=== PATIENT | male | born 1950 | race Caucasian/White ===

== ENCOUNTER → 2017-11-18 08:11 | Outpatient (CLI) | payer MEDICARE, OTHER, SELFPAY ==
[2017-11-18 09:55] LABS: Absolute Lymphocyte Count 1.62 X10^3/ul (0.83-4.51); Absolute Neutrophil Count 4.3 X10^3/uL (2.0-7.7); Basophil# 0.03 X10^3/uL; Basophil% 0.4 % (0-1); Eosinophil# 0.22 X10^3/uL; Eosinophils% 3.2 % (0-5); Hematocrit 48.2 % (40-54); Hemoglobin 16.1 g/dl (13.0-16.5); Lymphocyte # 1.62 X10^3/ul (4.0); Lymphocyte % 23.8 % (19-41); Mean Corp Hgb Conc 33.4 g/gl (32-36); Mean Corpuscular Volume 92.9 fL (80-94); Mean Platelet Vol. 9.9 fl (6.2-12.0); Monocyte# 0.61 X10^3/uL; Neutrophil # 4.31 X10^3/uL (2.7-7.7); Neutrophil % 63.3 % (47-70); POSITIVE COUNT NO; POSITIVE DIFFERENTIAL NO; POSITIVE MORPHOLOGY NO; Platelet Count 185 K/mm3 (150-450); RBC Distribution Width CV 14.1 % (11.6-14.6); RBC Distribution Width SD 47.6 fl (35.1-43.9); Red Blood Count 5.19 M/mm3 (4.6-6.2); White Blood Count 6.8 K/mm3 (4.4-11.0)
[2017-11-18 10:29] LABS: ALB/GLOB Ratio 0.9 RATIO (0.9-2.4); AST(SGOT) 24 U/L (15-37); Alanine Aminotransfer ALT/SGPT 45 U/L (16-61); Albumin, Serum 3.7 g/dL (3.2-5.0); Alkaline Phosphatase 81 U/L (45-117); Anion Gap 7 (5-15); BUN 17 mg/dL (7-18); BUN/Creat Ratio 14.4 RATIO (10-20); Calcium,Total 8.6 mg/dL (8.5-10.1); Chloride 107 mmol/L (98-107); Cholesterol 154 mg/dL (200); Creatinine, Serum 1.18 mg/dL (0.70-1.30); EST Glomerular Filtration Rate 65 mL/min (>60); Est Glom Filt Rate - Afr Amer 79 mL/min (>60); Globulin 3.9 g/dL (2.2-4.2); Glucose 109 mg/dL (74-106); High Density Lipoprotein 38 mg/dL; PSA,Total - Annual Screen < 0.01 ng/mL (0.00-4.00); Potassium 4.1 mmol/L (3.5-5.1); Protein, Total 7.6 g/dL (6.4-8.2); Sodium Level 140 mmol/L (136-145); Triglycerides 163 mg/dL; Very Low Density Lipoprotein 33 mg/dL (5-40)
== END ==
PROVIDERS: Family Provider Family Medicine; PCP Family Medicine; Visit Provider Family Medicine
DX: R73.01 Impaired fasting glucose (principal); E78.5 Hyperlipidemia, unspecified; Z85.46 Personal history of malignant neoplasm of prostate
CPT/HCPCS: 36415; 80053; 80061; 84153; 85025; G0103

== ENCOUNTER → 2018-03-03 12:15 | Outpatient (CLI) | payer MEDICARE, OTHER, SELFPAY ==
--- NOTE | 2018-03-03 12:34 | RAD_ITS ---
STUDY: X-RAY - RIGHT KNEE REASON FOR EXAM: Male, 67 years old. Pain. TECHNIQUE: 4 view(s) of the knee. COMPARISON: None. FINDINGS: Normal visualized distal femur. Normal visualized proximal tibia and fibula. Normal proximal tibiofibular articulation. There is no demonstrated fracture. Normal medial femorotibial compartment. Normal lateral femorotibial compartment. Normal patellofemoral articulation. There is no demonstrated joint effusion. The soft tissue structures are unremarkable. RAD/Knee 4 or More Views IMPRESSION: Normal x-ray examination of the knee. Electronically Signed: Lemuel Douglas MD at 21:25 EST , Service support ,
== END ==
PROVIDERS: Family Provider Family Medicine; PCP Family Medicine; Referring Provider Family Medicine; Visit Provider Family Medicine
DX: M19.90 Unspecified osteoarthritis, unspecified site (principal)
CPT/HCPCS: 73564

== ENCOUNTER → 2018-07-22 | Outpatient (CLI) | payer MEDICARE, OTHER, SELFPAY ==
[2018-07-21 08:56] VITALS: BMI 30.4
[2018-07-22 15:44] LABS: Pathologist Comment May follow
[2018-07-22 17:09] LABS: Synovial Fld Mononuclear WBC % 87.4 %; Synovial Fld Polynuclear WBC # 0.035 10^3/ul; Synovial Fld Polynuclear WBC % 12.6 %
[2018-07-22 19:13] LABS: RBC /Synovial Fluid 30 /mm3 (0)
[2018-07-22 19:14] LABS: AUTO B FLUID DILUENT BKGD CT WBC <0.1 RBC <0.01 (W<.1,R<.01); CRYSTALS, BODY FLUID See PATH REV; Color / Synovial Fluid Yellow (Pale Yellow); Source / Synovial Fluid RT.KNEE; Source- Body Fluid SYNOVIAL
[2018-07-22 19:15] LABS: Appearance /Synovial Fluid Clear (CLEAR)
[2018-07-22 19:27] LABS: Body Fluid QC Type(s) BF2Q,BF3Q; Lymph 16 %; Monocyte /Synovial Fluid 78 %; Neutrophil 6 % (0-25)
[2018-07-25 14:37] LABS: Pathologist Review Reviewed
[2018-07-26 17:39] LABS: GLUCOSE, SYNOVIAL FLUID 138 mg/dL (.); PROTEIN, SYNOVIAL FLUID 3.8 g/dL (.)
== END | disposition home or self-care (01) ==
LOC: LABSPEC 14:52
PROVIDERS: Family Provider Family Medicine; PCP Family Medicine; Referring Provider Orthopaedic Surgery; Visit Provider Orthopaedic Surgery
DX: M23.306 Other meniscus derangements, unspecified meniscus, right knee (principal); M17.11 Unilateral primary osteoarthritis, right knee
CPT/HCPCS: 82945; 84157; 87070; 87075; 87205; 89050; 89051; 89060

== ENCOUNTER → 2018-09-01 | Outpatient (CLI) | payer MEDICARE, OTHER, SELFPAY ==
[2018-09-01 12:25] VITALS: BMI 30.4
--- NOTE | 2018-09-01 12:47 | RAD_ITS ---
STUDY: X-RAY - RIGHT TIBIA AND FIBULA REASON FOR EXAM: Leg pain, no specific injury. TECHNIQUE: 2 view(s) of the tibia and fibula were obtained. COMPARISON: Radiographs of the right knee 03/03/2018. FINDINGS: There is a very small focus of nonaggressive periosteal reaction of the medial aspect of the proximal tibial diaphysis. Normal visualized fibula. The soft tissue structures are unremarkable. RAD/Tibia & Fibula 2 Views IMPRESSION: Very small focus of nonaggressive periosteal reaction of the proximal tibial diaphysis. Otherwise, unremarkable x-ray examination of the right tibia and fibula. Electronically Signed: Ever Jones MD at 15:24 EDT Tel , Service support ,
== END | disposition home or self-care (01) ==
LOC: HPRAD 12:46
PROVIDERS: Family Provider Family Medicine; PCP Family Medicine; Referring Provider Orthopaedic Surgery; Visit Provider Orthopaedic Surgery
DX: M25.561 Pain in right knee (principal)
CPT/HCPCS: 73590

== ENCOUNTER → 2018-09-09 | Outpatient (CLI) | payer MEDICARE, OTHER, SELFPAY ==
[2018-09-01 12:25] VITALS: BMI 30.4
--- NOTE | 2018-09-09 07:14 | MRI_ITS ---
STUDY: MRI RIGHT KNEE REASON FOR EXAM: Medial right knee pain for 8 months, no specific injury. TECHNIQUE: Standardized fat and water weighted pulse sequences were obtained in all 3 orthogonal planes. COMPARISON: Radiographs 03/03/2018. FINDINGS: There is a complex tear of the posterior horn and body of the medial meniscus (proton-density sagittal images 9-16; proton density coronal images 13-16) including a radial component (T2 coronal images 11, 12). There is peripheral subluxation of the medial meniscus. There is arthrosis of the medial femorotibial compartment with chondral thinning (T2 sagittal image 7). There is subchondral bone edema of the medial femoral condyle and tibial plateau (T2 coronal images 13-18), a stress phenomenon. Normal medial collateral ligamentous complex (MCL). Normal distal semimembranosus, gracilis and semitendinosus tendons. Normal lateral meniscus. There is mild arthrosis of the lateral femorotibial compartment with mild irregularity of the articular cartilage at the posterior aspect of the compartment (T2 sagittal image 19). Normal lateral femoral condyle and tibial plateau. Normal proximal tibiofibular articulation. Normal lateral collateral (fibular) ligament. Normal popliteus tendon. Normal biceps femoris tendon. Normal anterior cruciate ligament (ACL). Normal posterior cruciate ligament (PCL). Normal congruent patellofemoral articulation. There is mild arthrosis of the patellofemoral compartment with mild irregularity of the articular cartilage (T2 sagittal image 13). Normal medial and lateral patellar retinaculum. Normal visualized quadriceps tendon. Normal patellar tendon. Normal Hoffa's fat pad. There is a small joint effusion. There is a very small popliteal cyst (T2 sagittal images 6, 7). There is a ganglion cyst adjacent to the origin of the lateral gastrocnemius (T2 sagittal images 16-18) measuring 1.5 cm in length. There is mild edema in the anterior and medial subcutis adipose space. There is mild bone edema in the proximal tibia near the insertion site of the posterior cruciate ligament. MRI/Lower Ext Joint Only (Routine) IMPRESSION: Medial meniscal tear. Tricompartmental arthrosis. Subchondral bone edema of the medial femoral condyle and medial tibial plateau, a stress phenomenon. Small joint effusion. Very small popliteal cyst. Ganglion cyst adjacent to the origin of the lateral gastrocnemius. Electronically Signed: Ever Jones MD at 8:59 EDT Tel , Service support ,
== END | disposition home or self-care (01) ==
LOC: MRI 07:13
PROVIDERS: Family Provider Family Medicine; PCP Family Medicine; Referring Provider Orthopaedic Surgery; Visit Provider Orthopaedic Surgery
DX: S83.241A Other tear of medial meniscus, current injury, right knee, initial encounter (principal)
CPT/HCPCS: 73721

== ENCOUNTER 2018-10-17 09:00 | Outpatient (RCR) | payer MEDICARE, OTHER, SELFPAY ==
[2018-10-14 09:03] VITALS: BMI 30.4
--- NOTE | 2018-10-17 09:43 | HP.PTEVAL ---
Patient's Visit Information FARRUKH GORDON is a 68 year old M referred to Physical Therapy by Deb Becerra DO with a diagnosis of OA in the right knee. Date of Evaluation: 10/17/18 Physical Therapist: Amira Michelle DPT - Visit Plan Frequency: 1x/Week Duration: 1 Week Plan: Patient was evaluation and given HEP including SLS, standing HR/TR, gastroc stretching, hamstring stretching and quad stretching. Patient was educated on importance of strength for support of musculature surrounding OA. Encouraged complaince with HEP and he will call with questions or concerns. Appropriate to continue HEP and be d/c from PT at this time. - Subjective Findings: Patient reports that he has medial knee pain on the right knee. 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 And is on uneven surfaces a lot- but no specific injury- no falls. He knows he has severe OA in the knee but he has pain all the time. Sometimes its worse than others. Worst: [address]: being on his feet, uneven surfaces. Can tolerate it all day long- but when he gets up in the AM from walking to bed to bathroom- the weight on it makes it really painful- feels like the knee donovan on him but he has not fallen. Eases: cool wash rag helps in the AM. Best: 4/10. Does radiate to the ankle. Describes the pain as sharp/shooting down the leg and achy pains at the base of the patella but that is not very often. Dr. James thinks that its his back that is more the pain coming down his leg. Does not report back problems. Does not have N/T in the LE. Sleep: not disturbed- side sleeper with a pillow between his knes. Did have an X-ray and MRI- showed tricompartmental OA and medial meniscal tear. ABout 3 months ago had fluid drained and a cortisone injection- only lasted about to his car. Goes back to [facility] in 3 weeks for another injection. Dr. James may have to go in and clean it out and add cement to the bone- she is afraid to go in due to OA and flare it up. PMHx: prostate cancer 2011, DM Meds: aspirin, atorvastatin,diclofenac sodium, metformin, omega-3 fatty acids - Objective Posture: FH, RS- does correct with verbal cues and maintains in hard back chair. Stairs:asc/desc 8 recip with no HR. HR/TR: able with UE A for balance. SLS: 3 sec then LOB- requires UE A for righting. ROM: 0-125 degrees with pain at end range flexion. Palpation: tender along medial joint line. Strength: Ankle: 5/5, Knee: 5/5, Hip: 4+/5, Core: fair plus. Flex: HS: severe, Gastroc: moderate, Quad: mild - Goals Goal 1:: Patient will be I with HEP and progression Goal Time Frame: 4-6 Weeks - Rehabilitation Potential Physical Therapy Diagnosis: Patient presents with hypomobility- patient has good strength and ROM but does demonstrate poor proprioception and reports pain with activity. Rehabilitation Potential: Fair - Anticipated Interventions Thank you for the opportunity to evaluate your patient. For Medicare and Medicare HMO plans, please review the plan of care and approve it. It will need to be FAXED BACK to us at [phone] for Medicare purposes. For Medicare only, by signing this I certify the plan of care. Please let me know if there are questions or concerns regarding this plan of care. Physician Signature: Date:
== END 2018-10-17 19:00 | disposition home or self-care (01) ==
LOC: PT 09:00
PROVIDERS: Family Provider Family Medicine; PCP Family Medicine; Referring Provider Orthopaedic Surgery; Visit Provider Orthopaedic Surgery
DX: M17.11 Unilateral primary osteoarthritis, right knee (principal)
CPT/HCPCS: 97110; 97161

== ENCOUNTER → 2019-01-03 08:28 | Outpatient (CLI) | payer MEDICARE, OTHER, SELFPAY ==
[2018-12-08 08:13] VITALS: BMI 30.4
[2019-01-03 09:55] LABS: Absolute Lymphocyte Count 1.94 X10^3/uL (0.83-4.51); Absolute Neutrophil Count 5.5 X10^3/uL (2.0-7.7); Basophil# 0.06 X10^3/uL; Basophil% 0.7 % (0-1); Eosinophil# 0.23 X10^3/uL; Eosinophils% 2.7 % (0-5); Hematocrit 47.4 % (40-54); Hemoglobin 15.8 g/dL (13.0-16.5); Lymphocyte # 1.94 X10^3/ul (4.0); Lymphocyte % 22.7 % (19-41); Mean Corp Hgb Conc 33.3 g/dL (32-36); Mean Corpuscular Hgb 30.4 pg (27.0-32.0); Mean Corpuscular Volume 91.3 fL (80-94); Mean Platelet Vol. 9.6 fl (6.2-12.0); Monocyte# 0.79 X10^3/uL; Monocyte% 9.2 % (0-10); NRBC Flagged by Analyzer 0 % (0-5); Neutrophil # 5.49 X10^3/uL (2.7-7.7); Neutrophil % 64.1 % (47-70); Platelet Count 209 K/mm3 (150-450); RBC Distribution Width CV 13.7 % (11.6-14.6); RBC Distribution Width SD 46.4 fl (35.1-43.9); Red Blood Count 5.19 M/mm3 (4.6-6.2); White Blood Count 8.6 K/mm3 (4.4-11.0)
[2019-01-03 10:15] LABS: Hemoglobin A1c 6.8 % (4.2-6.3)
[2019-01-03 10:40] LABS: ALB/GLOB Ratio 1.1 RATIO (0.9-2.4); AST(SGOT) 26 U/L (15-37); Alanine Aminotransfer ALT/SGPT 39 U/L (16-61); Albumin, Serum 3.8 g/dL (3.2-5.0); Alkaline Phosphatase 104 U/L (45-117); Anion Gap 6 (5-15); BUN 19 mg/dL (7-18); BUN/Creat Ratio 15.8 RATIO (10-20); Calcium,Total 8.9 mg/dL (8.5-10.1); Chloride 106 mmol/L (98-107); Cholesterol 175 mg/dL (200); EST Glomerular Filtration Rate 64 mL/min (>60); Est Glom Filt Rate - Afr Amer 77 mL/min (>60); Globulin 3.6 g/dL (2.2-4.2); Glucose 145 mg/dL (74-106); High Density Lipoprotein 41 mg/dL; PSA,Total - Annual Screen < 0.01 ng/mL (0.00-4.00); Potassium 4.2 mmol/L (3.5-5.1); Protein, Total 7.4 g/dL (6.4-8.2); Sodium Level 138 mmol/L (136-145); Triglycerides 181 mg/dL; Very Low Density Lipoprotein 36 mg/dL (5-40)
== END ==
PROVIDERS: Family Provider Family Medicine; PCP Family Medicine; Referring Provider Family Medicine; Visit Provider Family Medicine
DX: Z00.00 Encounter for general adult medical examination without abnormal findings (principal); Z85.46 Personal history of malignant neoplasm of prostate; R73.01 Impaired fasting glucose; E78.5 Hyperlipidemia, unspecified; Z12.5 Encounter for screening for malignant neoplasm of prostate
CPT/HCPCS: 36415; 80053; 80061; 83036; 84153; 85025; G0103

== ENCOUNTER → 2019-04-06 06:13 | Outpatient (CLI) | payer MEDICARE, OTHER, SELFPAY ==
[2019-04-05 10:59] VITALS: BMI 29.3
--- NOTE | 2019-04-06 10:11 | STRESSREP ---
Stress Test Report Pharmacologic myocardial perfusion stress test. Preoperative cardiac evaluation. 69-year-old man for knee surgery. Stress protocol: Resting EKG demonstrates normal sinus rhythm with a rate of 64 bpm normal intervals are noted resting blood pressure is 158/92 mmHg. 0.4 mg of regadenoson was infused per usual protocol followed by Intravenous saline flush injection continuous EKG monitoring was performed. The maximum heart rate attained was 88 bpm which was 58% of maximum predicted heart rate the maximum workload was 1 metabolic equivalent. At rest there were no ST or T wave changes noted suggest abnormal flow reserve at peak infusion nonspecific ST-T wave changes were noted would not meet the criteria for abnormal flow reserve. Resting blood pressures 158/92 with a peak blood pressure 162/84 mmHg. Myocardial perfusion protocol. 11.9 mCi of technetium 99m sestamibi was injected at rest. 0.4 mg of regadenoson was infused per usual protocol peak infusion 34.1 mCi of technetium 99m sestamibi was injected stress images were obtained stress and rest images were reconstructed and compared in the short axis vertical and horizontal long axis. Gated images were also obtained Perfusion SPECT analysis: Review of the stress images demonstrate normal uptake of tracer noted in all areas of myocardium the resting images similar demonstrate normal uptake of tracer noted in all areas of the myocardium. No reversibility is noted suggest ischemia no previous infarct is noted. Gated SPECT analysis: The gated ejection fraction is 69%. Conclusion: Normal pharmacologic myocardial perfusion stress test. Preserved ejection fraction.
== END ==
PROVIDERS: Family Provider Family Medicine; PCP Family Medicine; Referring Provider Internal Medicine Cardiovascular Disease; Visit Provider Internal Medicine Cardiovascular Disease
DX: Z01.810 Encounter for preprocedural cardiovascular examination (principal); R94.31 Abnormal electrocardiogram [ECG] [EKG]
CPT/HCPCS: 78452; 93017; A9500; A4216; J2785

== ENCOUNTER → 2020-01-22 08:41 | Outpatient (CLI) | payer MEDICARE, OTHER, SELFPAY ==
[2019-04-05 10:59] VITALS: BMI 29.3
[2020-01-22 12:34] LABS: Absolute Lymphocyte Count 1.56 X10^3/uL (0.83-4.51); Absolute Neutrophil Count 4.6 X10^3/uL (2.0-7.7); Basophil# 0.05 X10^3/uL; Basophil% 0.7 % (0-1); Eosinophil# 0.19 X10^3/uL; Eosinophils% 2.7 % (0-5); Hematocrit 47.1 % (40-54); Hemoglobin 15.9 g/dL (13.0-16.5); Lymphocyte # 1.56 X10^3/ul (4.0); Lymphocyte % 22.1 % (19-41); Mean Corp Hgb Conc 33.8 g/dL (32-36); Mean Corpuscular Volume 91.8 fL (80-94); Mean Platelet Vol. 9.8 fl (6.2-12.0); Monocyte% 8.5 % (0-10); NRBC Flagged by Analyzer 0 % (0-5); Neutrophil # 4.63 X10^3/uL (2.7-7.7); Neutrophil % 65.4 % (47-70); Platelet Count 216 K/mm3 (150-450); RBC Distribution Width CV 13.2 % (11.6-14.6); RBC Distribution Width SD 44.5 fl (35.1-43.9); Red Blood Count 5.13 M/mm3 (4.6-6.2); White Blood Count 7.1 K/mm3 (4.4-11.0)
[2020-01-22 13:23] LABS: ALB/GLOB Ratio 0.9 RATIO (0.9-2.4); AST(SGOT) 9 U/L (15-37); Alanine Aminotransfer ALT/SGPT 29 U/L (16-61); Albumin, Serum 3.5 g/dL (3.2-5.0); Alkaline Phosphatase 100 U/L (45-117); Anion Gap 7 (5-15); BUN 21 mg/dL (7-18); BUN/Creat Ratio 17.1 RATIO (10-20); Chloride 106 mmol/L (98-107); Cholesterol 149 mg/dL (200); Creatinine, Serum 1.23 mg/dL (0.70-1.30); EST Glomerular Filtration Rate 62 mL/min (>60); Est Glom Filt Rate - Afr Amer 75 mL/min (>60); Glucose 129 mg/dL (74-106); High Density Lipoprotein 39 mg/dL; PSA,Total - Annual Screen < 0.01 ng/mL (0.00-4.00); Potassium 4.2 mmol/L (3.5-5.1); Protein, Total 7.5 g/dL (6.4-8.2); Sodium Level 139 mmol/L (136-145); Triglycerides 178 mg/dL; Very Low Density Lipoprotein 36 mg/dL (5-40)
== END ==
PROVIDERS: PCP Family Medicine; Visit Provider Family Medicine
DX: E11.9 Type 2 diabetes mellitus without complications (principal); Z85.46 Personal history of malignant neoplasm of prostate; E78.5 Hyperlipidemia, unspecified
CPT/HCPCS: 36415; 80053; 80061; 84153; 85025; G0103

== ENCOUNTER 2020-06-10 10:58 | Inpatient (IN) | payer MEDICARE, OTHER, SELFPAY ==
[2019-04-05 10:59] VITALS: BMI 29.3
[2020-06-10] VITALS (15 sets, daily range): BP systolic 159–199; BP diastolic 83–113; PULSE 61–80; RESP 12–23; TEMP 36.6–37.1; O2SAT 96–98; BMI 27.4; BMI 28.8
--- NOTE | 2020-06-10 11:00 | CT_ITS ---
STUDY: CT HEAD STROKE PROTOCOL W/O CONTRAST INJECTION REASON FOR EXAM: Male, 70 years old. Neuro deficit, acute, stroke suspected RADIATION DOSAGE (If Supplied By Facility): CTDIvol = ( ) mGy, DLP = ( ) mGycm TECHNIQUE: Transaxial CT imaging of the brain was performed without administration of intravenous contrast material. Individualized dose optimization techniques were used for this CT. COMPARISON: No relevant priors. FINDINGS: Normal soft tissue structures. Normal calvarium. There is mild cerebral atrophy with widening of the extra-axial spaces and ventricular dilatation. Focal area of decreased attenuation in the posterior medial aspect of the left occipital lobe suggestive of early infarct. Evidence of encephalomalacia in the right posterior parietal lobe. Normal basal ganglia and thalami. Normal brainstem. Normal cerebellum. There is no intracranial hemorrhage. There are no findings of an acute ischemic infarction. Atherosclerotic calcification of the vertebral arteries as well as the cavernous portions of the internal carotid arteries bilaterally. Normal visualized paranasal sinuses. CT/STROKE Brain/Head without Cont IMPRESSION: Chronic involutional changes of the brain. Findings suggestive of an acute focal CVA involving the posterior medial aspect of the left occipital lobe. N.B. : The above information has been verbally conveyed by Guicho Nelson MD to Holger Herring on 06/10/2020 11:25:07 (ET). Electronically Signed: Guicho Nelson MD at 11:26 EDT , Service support ,
--- NOTE | 2020-06-10 11:00 | EKG12_ITS ---
Test Reason : NEURO SX Blood Pressure : / mmHG Vent. Rate : 059 BPM Atrial Rate : 059 BPM P-R Int : 160 ms QRS Dur : 098 ms QT Int : 424 ms P-R-T Axes : 030 -17 089 degrees QTc Int : 419 ms Sinus bradycardia Incomplete right bundle branch block Nonspecific T wave abnormality Abnormal ECG Confirmed by FELI DELGADO, ARRON ([id number]), website/blog editor SIM KILGORE ([id number]) on 06/12/2020 10:13:45 AM Referred By: CARLIN Confirmed By:ARRON EDMOND MD
--- NOTE | 2020-06-10 11:02 | CT_ITS ---
STUDY: CTA HEAD AND NECK WITH CONTRAST REASON FOR EXAM: Male, 70 years old. Neuro deficit, acute, stroke suspected -- Patient with a right inferior hemianopsia. RADIATION DOSAGE (If Supplied By Facility): CTDIvol = ( 18.16 ) mGy, DLP = ( 727.45 ) mGycm TECHNIQUE: CT angiography was performed with a multi-detector CT scanner. Data acquisition was obtained from the skull base through the vertex following intravenous administration of IV 100mL Isovue-370. MIP images were reconstructed from the axial data set. Post-processing of the angiographic images was performed, with multiplanar reformation and 3D reconstruction. Individualized dose optimization techniques were used for this CT. COMPARISON: No relevant priors. FINDINGS: Normal bilateral petrous carotid arteries. There is calcified plaque formation of the right cavernous carotid artery, without a cross-sectional luminal stenosis. There is calcified plaque formation of the left cavernous carotid artery, without a cross-sectional luminal stenosis. Normal right A1 segments of the anterior cerebral artery. Normal left A1 segments of the anterior cerebral artery. Normal intact anterior communicating artery (ACOM). Normal bilateral A2 segments of the anterior cerebral arteries. Normal right M1 and M2 segments of the middle cerebral arteries, with a normal M1 bifurcation. Normal left M1 and M2 segments of the middle cerebral arteries, with a normal M1 bifurcation. There is a persistent origin of the right posterior cerebral artery with absence of the posterior communicating artery (PCOM). Normal left posterior communicating artery (PCOM). Normal bilateral vertebral arteries. Normal basilar artery with a normal basilar bifurcation. The visualized bilateral superior cerebellar (SCA) arteries are normal. Normal bilateral P1, P2 and visualized P3 segments of the posterior cerebral arteries. There is no demonstrated aneurysm of the ewiiaapaayp of [place]. AORTIC ARCH: There is atherosclerotic calcific plaque formation of the aortic arch and great vessels arising from the aortic arch, without a hemodynamically significant stenosis. There is a normal origin of the brachiocephalic, left common carotid, and left subclavian arteries. RIGHT CAROTID ARTERIES: Normal right common carotid artery (CCA). Normal right common carotid bulb. Normal origin of the right internal carotid (ICA) artery without a hemodynamically significant stenosis. Normal visualized cervical portion of the right internal carotid artery. Normal origin of the right external carotid artery (ECA). LEFT CAROTID ARTERIES: Normal left common carotid artery (CCA). Normal left common carotid bulb. There is mild atherosclerotic plaque formation of the origin of the left internal carotid artery with less than 50% cross sectional diameter stenosis. Normal visualized cervical portion of the left internal carotid artery. Normal origin of the left external carotid artery (ECA). VERTEBRAL ARTERIES: Normal bilateral vertebral arteries. Multilevel degenerative changes of the visualized cervical spine. CT/STROKE CTA Head AND Neck W/Con IMPRESSION: Normal CTA Head and neck with contrast. N.B. : The above information has been verbally conveyed by Guicho Nelson MD to Holgerhunter Herring on 06/10/2020 11:34:42 (ET). Electronically Signed: Guicho Nelson MD at 11:35 EDT , Service support ,
--- NOTE | 2020-06-10 11:05 | ED.DCSUM_ITS ---
History of Present Illness Chief Complaint: Eye Problem Informant: Patient, Family, - - Sleep call from manager bakery, Dr. Jeremiah Rubin Onset: Yesterday - 1400 Context: Sudden Onset Timing: Continuous Quality and Location: - - Partial loss of vision Onset: June 09 at 1400 Current Severity: Mild Maximum Severity: Mild Worsened by: Nothing, recent Covid vaccine, [employer] Relieved by: Nothing Associated Symptoms: Headache - Headache started when patient noted change in vision Narrative: Patient is an elderly 70-year-old male seen at the ophthalmology office for problems with vision. I received a call from Dr. Jeremiah Rubin that patient has an inferior right homonymous hemianopsia. Patient does report headache. There was no problems with speech or swallowing. He denies paresthesia, anesthesia medics. No trouble with balance or vertigo. He denies nausea or vomiting. He apparently is on aspirin. Prior similar symptoms: No Recent Illness/Hospitalization: No - Past Medical History (1) Elevated blood pressure reading in office without diagnosis of hypertension Status: Acute (2) Incomplete right bundle branch block Status: Acute (3) Hyperlipidemia Status: Chronic (4) Prostate cancer Status: Chronic Past Medical History - Allergies and Home Meds Allergies/Adverse Reactions: Allergies No Known Allergies Allergy (Unverified 07/21/18 08:57) Primary Care Physician: Julia Torres MD [Primary Care Provider] - Surgical History: noncontributory Lives: Spouse/ Significant Other Smoking Status: Never smoker Alcohol: None Drugs: None Review of Systems General: Denies: Chills, Fever, Sweats Eyes: Reports: Visual changes - bilaterally. Denies: Blurred Vision - bilaterally, Diplopia ENT: Denies: Rhinorrhea, Sore throat Cardiovascular: Denies: Chest pain, Palpitations Respiratory: Denies: Dyspnea, Cough, Dyspnea on exertion Gastrointestinal: Denies: Abdominal pain, Nausea, Vomiting, Diarrhea, Melena, Hematochezia Genitourinary: Denies: Dysuria, Hematuria, Frequency Musculoskeletal: Denies: Myalgias, Arthralgias, Neck pain, Back pain, Swelling, Extremity Pain Skin: Denies: Rash, Wounds Neurological: Denies: Headache, Weakness, Numbness Hematologic: Denies: Easy bruising, Easy bleeding STROKE Vital Signs/Narrative: Vital Signs Temp Pulse Resp BP Pulse Ox 06/10/20 10:59 98.2 F 73 16 169/113 H 97 Inital Vital Signs reviewed: Yes - NIHSS Initial 1a Level of Consciousness: 0 1b LOC Questions (Score 2 if aphasic/stupor): 0 1c LOC Commands (Only score 1st attempt): 0 2 Best Gaze (If aphasic, use reflexive mvmts.): 0 3 Visual: 1 - Inferior right homonymous hemianopsia 4 Facial Palsy: 0 5 Motor Arm Right (UN = amputation/fusion): 0 5 Motor Arm Left: 0 6 Motor Leg Right: 0 6 Motor Leg Left: 0 7 Limb ataxia (Only + if out of proportion): 0 8 Sensory (Aphasia/stupor=0 or 1, coma=2): 0 9 Best Language: 0 10 Dysarthria (mute, coma=2, intubated=UN): 0 11 Extinction and Inattention (only scored if +): 0 Total Score: 1 General: Well nourished, Well developed Head: Normocephalic, Atraumatic Eyes: Perrl, EOMI. Negative for: Pale conjunctiva, Scleral icterus ENT: Moist mucous membranes, No rhinorrhea Neck: Supple, Nontender, No lymphadenopathy, No JVD Cardiovascular: Regular rate, Regular rhythm, No murmurs Respiratory: No distress, CTA bilaterally, Chest nontender Abdomen: Soft, Nontender, Nondistended, Normal bowel sounds Back: Nontender, Normal Inspection Extremities: Nontender, No edema Skin: Normal color, No rash Neurological: Alert, Oriented x3, Cranial nerves II-XII grossly intact, Normal Strength, Normal Sensation Psychological: Normal affect Diagnostic/Tx/Re-eval Impressions Brain CT 06/10/20 11:00 IMPRESSION: Chronic involutional changes of the brain. Findings suggestive of an acute focal CVA involving the posterior medial aspect of the left occipital lobe. N.B. : The above information has been verbally conveyed by Guicho Nelson MD to Holger Herring on 06/10/2020 11:25:07 (ET). Electronically Signed: Guicho Nelson MD at 11:26 EDT , Service support , ADDENDUM: 06/10/20 1133 IMPRESSION: Chronic involutional changes of the brain. Findings suggestive of an acute focal CVA involving the posterior medial aspect of the left occipital lobe. N.B. : The above information has been verbally conveyed by Guicho Nelson MD to [facility] on 06/10/2020 11:25:07 (ET). Electronically Signed: Guicho Nelson MD at 11:26 EDT , Service support , Head/Neck CTA 06/10/20 11:02 IMPRESSION: Normal CTA Head and neck with contrast. N.B. : The above information has been verbally conveyed by Guicho Nelson MD to [facility] on 06/10/2020 11:34:42 (ET). Electronically Signed: Guicho Nelson MD at 11:35 EDT , Service support , ADDENDUM: 06/10/20 1142 IMPRESSION: Normal CTA Head and neck with contrast. N.B. : The above information has been verbally conveyed by Guicho Nelson MD to [facility] on 06/10/2020 11:34:42 (ET). Electronically Signed: Guicho Nelson MD at 11:35 EDT , Service support , 06/10/20 11:00 STROKE Brain/Head without Cont [CT] Stat 06/10/20 11:02 STROKE CTA Head AND Neck W/Con [CT] Stat 06/10/20 11:45 Chest 1 View [RAD] Stat Laboratory Results 06/10/20 06/10/20 06/10/20 11:13 11:13 11:13 WBC 7.8 RBC 5.23 Hgb 16.4 Hct 47.6 MCV 91.0 MCH 31.4 MCHC 34.5 RDW Std Deviation 44.8 H RDW Coeff of Gregorio 13.3 Plt Count 187 MPV 9.3 Immature Gran % (Auto) 0.400 Neut % (Auto) 62.1 Lymph % (Auto) 24.6 Travis % (Auto) 9.0 Eos % (Auto) 3.1 Baso % (Auto) 0.8 Absolute Neuts (auto) 4.8 Absolute Lymphs (auto) 1.91 Nucleated RBC % 0 PT 12.2 INR 1.0 APTT 26.6 Sodium 139 Potassium 4.3 Chloride 108 H Carbon Dioxide 28.0 Anion Gap 3 L BUN 17 Creatinine 1.33 H Estim Creat Clear Calc 50.94 Est GFR (MDRD) Af Amer 68 Est GFR (MDRD) Non-Af 56 L BUN/Creatinine Ratio 12.8 Glucose 133 H Calcium 8.8 Troponin I < 0.015 - Medical Decision Making Stroke Team Activated: Yes Reviewed Inclusion/Exclusion criteria: No - outside the window for TPA IV Alteplase (t-PA) Administered: No No contraindications for IV Alteplase (t-PA) administration.: No - Onset greater than 4-1/2 hours Alteplase (t-PA) risks, benefits, alternative discussed: Yes Resents with stroke involving the right occipital or right parietal area. This may be a complication to the [employer] Covid vaccine since there have been cases of thrombotic event after the Covid vaccine. Because patient complains of headache need to rule out bleed as well. Stroke order set was initiated. Stroke team is paged. Critical care time (excluding procedures): Arranging Admission or Transfer - Care time 31 minutes, this included history, physical, discussion with , discussion with neurologist at [facility], discussion with radiologist for the CT and CTA of the head neck, documentation, care of stroke patient ED Disposition - Plan for ED Patient: Disposition: Acute Care Hospital [facility] Diagnosis: Occipital stroke Referrals: Julia Torres MD [Primary Care Provider] -
[2020-06-10 11:19] LABS: Absolute Lymphocyte Count 1.91 X10^3/uL (0.83-4.51); Absolute Neutrophil Count 4.8 X10^3/uL (2.0-7.7); Basophil# 0.06 X10^3/uL; Basophil% 0.8 % (0-1); Eosinophil# 0.24 X10^3/uL; Eosinophils% 3.1 % (0-5); Hematocrit 47.6 % (40-54); Hemoglobin 16.4 g/dL (13.0-16.5); Lymphocyte # 1.91 X10^3/ul (4.0); Lymphocyte % 24.6 % (19-41); Mean Corp Hgb Conc 34.5 g/dL (32-36); Mean Corpuscular Hgb 31.4 pg (27.0-32.0); Mean Platelet Vol. 9.3 fl (6.2-12.0); NRBC Flagged by Analyzer 0 % (0-5); Neutrophil # 4.81 X10^3/uL (2.7-7.7); Neutrophil % 62.1 % (47-70); Platelet Count 187 K/mm3 (150-450); RBC Distribution Width CV 13.3 % (11.6-14.6); RBC Distribution Width SD 44.8 fl (35.1-43.9); Red Blood Count 5.23 M/mm3 (4.6-6.2); White Blood Count 7.8 K/mm3 (4.4-11.0)
[2020-06-10 11:28] LABS: Partial Thromboplast Time 26.6 Seconds (24.1-36.2); Prothrombin Time (Protime)PT. 12.2 SECONDS (11.7-14.9)
--- NOTE | 2020-06-10 11:35 | CM.ED ---
Social Work Responding to stroke alert, patient spouse, Raegan present. Active listening and support provided. Patient typically independent and lives at home with spouse. Will continue to follow as needed. Darrel CRISTINA, MEGGAN
[2020-06-10 11:37] LABS: Anion Gap 3 (5-15); BUN 17 mg/dL (7-18); BUN/Creat Ratio 12.8 RATIO (10-20); Calcium,Total 8.8 mg/dL (8.5-10.1); Chloride 108 mmol/L (98-107); Creatinine, Serum 1.33 mg/dL (0.70-1.30); EST Glomerular Filtration Rate 56 mL/min (>60); Est Glom Filt Rate - Afr Amer 68 mL/min (>60); Estimated Creatinine Clearance 50.94 ml/min; Glucose 133 mg/dL (74-106); Potassium 4.3 mmol/L (3.5-5.1); Sodium Level 139 mmol/L (136-145)
--- NOTE | 2020-06-10 11:45 | RAD_ITS ---
STUDY: X-RAY CHEST REASON FOR EXAM: Male, 70 years old. Neuro deficit, acute, stroke suspected TECHNIQUE: Single AP portable view of the chest. COMPARISON: None. FINDINGS: EKG electrodes are seen. The lungs are clear and expanded. There is no demonstrated pleural abnormality. Normal size heart. Normal mediastinum and roland. Normal visualized pulmonary arteries. There is atherosclerotic tortuosity of the aortic arch and descending thoracic aorta. There are diffuse degenerative changes of the visualized thoracic spine. Normal visualized ribs, clavicles, and shoulders. There is no demonstrated abnormality of the visualized soft tissue structures of the upper abdomen. RAD/Chest 1 View IMPRESSION: No acute abnormality is seen. Electronically Signed: Guicho Nelson MD at 12:16 EDT , Service support ,
--- NOTE | 2020-06-10 12:12 | CHAPLAIN ---
Type of Pastoral Visit ___ Initial Visit ___ Follow-up Visit ___ On-call Visit ___ General Patient Visit ___ Spiritual Assessment ___ Family Conference ___ Bereavement _x__ Rapid Response ___ Code Blue ___ Other (describe below) Pastoral Care Referral From ___ Patient ___ Family ___ Nurse ___ Physician ___ Stretcher Operator ___ Superintendent [employer] Construction _x__ Other (describe below) Sacrament/Intervention ___ Active listening ___ Anointing ___ Mandaeism ___ Bereavement ___ Communion ___ Candy exploration ___ ___ Life review ___ Prayer ___ Reconciliation ___ Sacrament of Sick _x__ Supportive presence ___ Wedding ___ Other (describe below) Pastoral Comments responded to stroke alert in ED; met with patient spouse while pt was being tested; SW also present for spouse; pt was talking and spouse did not request further care or support at this time from time clock inspector
--- NOTE | 2020-06-10 14:02 | MRI_ITS ---
We are attempting to reach an attending provider to discuss findings. An addendum with communication details will be sent when the communication is complete. STUDY: MRI BRAIN WITHOUT CONTRAST REASON FOR EXAM: Male, 70 years old. CVA TECHNIQUE: Standardized multiplanar fat and water weighted pulse sequences were obtained. COMPARISON: CT earlier today FINDINGS: There is mild cerebral atrophy with widening of the extra-axial spaces and ventricular dilatation. Normal white matter tracts of the supratentorial brain. Oval hyperintensity of the left occipital lobe demonstrates restricted diffusion consistent with a subacute infarct. Normal T2* images of the brain without demonstrated susceptibility artifact. There is no demonstrated hemosiderin stain. Encephalomalacia and gliosis in the posterior right parietal lobe consistent with a chronic infarct. Normal bilateral basal ganglia. Normal thalami. There is no extra-axial fluid accumulation. Normal flow voids within the major intracranial circulation suggesting patency by spin echo criteria. Normal sella turcica, pituitary gland, infundibular stalk, optic chiasm and hypothalamus. Normal tectal plate and pineal gland. Normal midbrain, jaun diego and medulla. Normal cerebellum. Normal basal cisterns. Normal bilateral temporal bones. Normal bilateral internal auditory canals. No demonstrated orbital abnormality, within the constraints of a routine brain study. Normal visualized paranasal sinuses. Normal calvarium and skull base. Normal visualized soft tissue structures. Normal visualized upper cervical spine. MRI/Brain without Contrast IMPRESSION: Involutional changes of the brain, as described above. Subacute infarct of the left occipital lobe. Electronically Signed: Alireza Bernal MD at 15:59 EDT Tel , Service support ,
--- NOTE | 2020-06-10 14:02 | ECHOD_ITS ---
Reason For Study: TIA/ CVA Procedure This was a 2D Doppler, Color Flow transthoracic echocardiogram. Exam performed portable in patient room. Left Ventricle Normal left ventricle. The estimated ejection fraction is 60-65% %. Right Ventricle Normal systolic function. Atria Normal left atrium. Normal right atrium. Mitral Valve There is moderate mitral annular calcification. Trivial mitral valve insufficiency. Tricuspid Valve Normal tricuspid valve. Aortic Valve Aortic sclerosis, no stenosis. Pulmonic Valve The pulmonic valve is not well visualized. Great Vessels Normal arch. Normal inferior vena cava. Pericardium/Pleural No pericardial effusion. Medication Performed a rapid injection of agitated mix of 9 cc saline and 1cc air to assess for atrial septal defect. MMode/2D Measurements & Calculations LVIDd: 5.0 cm IVSd: 1.0 cm Ao root diam: 3.5 cm LVIDs: 2.9 cm LVPWd: 1.1 cm RVDd: 3.2 cm FS: 41.3 % LAV(MOD-bp): 54.4 ml LVAd ap4: 33.4 cm2 SV(MOD-sp4): 69.3 ml LAV(MOD-bp) Indexed: 27.2 ml/m2 EDV(MOD-sp4): 108.0 ml LAV(MOD-sp2): 54.5 ml EDV(sp4-el): 113.2 ml LAV(MOD-sp4): 50.4 ml LVAs ap4: 18.1 cm2 ESV(MOD-sp4): 38.7 ml ESV(sp4-el): 40.3 ml EF(MOD-sp4): 64.1 % EF(sp4-el): 64.4 % SV(sp4-el): 73.0 ml LA A4 area: 19.4 cm2 LA dimension(2D): 4.1 cm RA A4 area: 13.7 cm2 Time Measurements MV dec time: 0.42 sec Doppler Measurements & Calculations MV E max alejandro: 72.4 cm/sec Lat Peak E' Alejandro: 9.0 cm/sec Med Peak E' Alejandro: 5.7 cm/sec MV A max alejandro: 123.6 cm/sec E/E' lat: 8.0 E/E' med: 12.7 MV E/A: 0.59 MV V2 max: 124.4 cm/sec Ao V2 max: 161.0 cm/sec LV V1 max: 124.0 cm/sec MV max P.2 mmHg Ao max P.4 mmHg LV V1 max P.1 mmHg MV V2 mean: 62.2 cm/sec MV mean P.8 mmHg MV V2 VTI: 40.9 cm TR max alejandro: 233.8 cm/sec MV P1/2t-pr_phl: 166.7 msec TR max P.9 mmHg Interpretation Summary Normal LV systolic function The estimated ejection fraction is 60-65% %. Trivial mitral valve insufficiency. There is moderate mitral annular calcification. Ordering Physician: Jhonatan Woods Referring Physician: CHRISTINE BAKER Performed By: Jaja Oscar, GIUSEPPECS, RVT
--- NOTE | 2020-06-10 16:41 | PCM.HP.STD ---
History of Present Illness Date of Admission: 06/10/20 Chief Complaint: Vision changes The patient is a 70 year old M with a PMH as below who presents to the hospital today after following up with his transportation services representative. He woke up this morning and had vision problems in the right. The ED physician was actually notified by the transportation services representative that the patient was having inferior right homonymous hemianopsia. He is also been having a headache since he had symptom onset on Wednesday. [facility] neurology was contacted and felt that he was having an ischemic stroke. He underwent a CTA of the head and neck which was normal, CT scan of the brain demonstrated an acute focal CVA involving the posterior medial aspect of the left occipital lobe. He denies any numbness or tingling in his extremities or weakness. Past Medical History Past Medical History (Chronic Problems): Chronic Problems (Last Updated 04/05/19 @ 11:01 by Matilda Ayala) Hyperlipidemia (Chronic) Prostate cancer (Chronic) Medical History: Medical History (Last Updated 04/05/19 @ 11:01 by Matilda Ayala) Incomplete right bundle branch block (Acute) I45.10 Hyperlipidemia (Chronic) E78.5 Prostate cancer (Chronic) C61 Arthritis M19.90 BPH (benign prostatic hyperplasia) N40.0 Hearing loss H91.90 Type 2 diabetes mellitus E11.9 Essential (primary) hypertension (Ruled-out) I10 Allergies No Known Allergies Allergy (Unverified 07/21/18 08:57) Home Medications: Ambulatory Orders Medication Instructions Recorded aspirin 81 mg chewable tablet 81 mg PO DAILY 07/21/18 atorvastatin 10 mg tablet 10 mg PO DAILY 07/21/18 diclofenac sodium 75 mg 75 mg PO QODAY 07/21/18 tablet,delayed release metformin 500 mg tablet 500 mg PO BID 07/21/18 omega-3 fatty acids 1,000 mg 1,000 mg PO DAILY 07/21/18 capsule Surgical History: Surgical History (Last Updated 04/03/19 @ 12:17 by Matilda Ayala) History of herniorrhaphy Z98.890, Z87.19 History of transurethral resection of prostate Z98.890, Z90.79 Lives: Spouse/ Significant Other Smoking Status: Never smoker Tobacco Use: Non-smoker Alcohol: None Drugs: None - *Family History Maternal Family History: Family History (Last Updated 04/03/19 @ 12:21 by Matilda Ayala) Father Myocardial infarction, Onset Age: 67 Mother Myocardial infarction, Onset Age: 67 Review of Systems Constitutional: Denies: Chills, Fever, Weight Change Eyes: Reports: Vision Change HEENT: Reports: Head Aches. Denies: Sinus Congestion, Sinus Drainage Cardiovascular: Denies: Chest Pain, Palpitations Respiratory: Denies: Cough, Shortness of breath at rest, Sputum production Gastrointestinal: Denies: Abdominal Pain, Nausea, Vomiting Genitourinary: Denies: Dysuria Musculoskeletal: Denies: Joint Pain, Joint Tenderness Skin: Denies: Rash, Wounds Neurological: Denies: Numbness, Tingling, Focal weakness Psychiatric: Denies: Anxiety, Depression Hematologic/ Lymphatic: Denies: Easy Bruising, Easy Bleeding VTE Information - Inpt Only VTE Present on Admission: No Patient Problems: Active and Suspected Problems (Last Updated 04/05/19 @ 11:01 by Matilda Ayala) Occipital stroke (Acute) Elevated blood pressure reading in office without diagnosis of hypertension (Acute) Incomplete right bundle branch block (Acute) - Physical Exam Vitals/I&O's: Vital Signs Temp Pulse Resp BP Pulse Ox 98.7 F 70 16 174/92 H 98 06/10/20 14:12 06/10/20 14:20 06/10/20 14:12 06/10/20 14:12 06/10/20 14:12 Oxygen Delivery Method Room Air Weight: 194 lb 14.218 oz Body Mass Index (BMI) 28.8 General: Alert, Oriented x3, Cooperative, No apparent distress HEENT: Atraumatic, PERRLA, EOMI, Normocephalic Oral: Moist Mucosa Neck: Supple, No JVD Lungs: Clear to auscultation, Normal air movement, No rhonchi, No wheeze, No rales Cardiovascular: Regular rate, Regular Rhythm, Normal S1, Normal S2, No murmurs Abdomen: Soft, Non Tender, Non-Distended, No Hepato-splenomegaly Extremities: No edema, Capillary Refill Less than 3 Seconds Skin: No rashes, No breakdown Neurological: Cranial nerves II-XII grossly intact, Deep Tendon Reflexes 2+/4 and Symmetrical, Neuro grossly intact, Motor Exam 5/5 strength throughout, Sensory exam intact to light touch and pain, - - Vision change in the right inferior field Psych/Mental Status: Normal Affect, Appropriate Laboratory Results 06/10/20 11:13: WBC 7.8, RBC 5.23, Hgb 16.4, Hct 47.6, MCV 91.0, MCH 31.4, MCHC 34.5, RDW Std Deviation 44.8 H, RDW Coeff of Gregorio 13.3, Plt Count 187, MPV 9.3, Immature Gran % (Auto) 0.400, Neut % (Auto) 62.1, Lymph % (Auto) 24.6, [place] % (Auto) 9.0, Eos % (Auto) 3.1, Baso % (Auto) 0.8, Absolute Neuts (auto) 4.8, Absolute Lymphs (auto) 1.91, Nucleated RBC % 0 06/10/20 11:13: PT 12.2, INR 1.0, APTT 26.6 06/10/20 11:13: Sodium 139, Potassium 4.3, Chloride 108 H, Carbon Dioxide 28.0, Anion Gap 3 L, BUN 17, Creatinine 1.33 H, Estim Creat Clear Calc 50.94, Est GFR (MDRD) Af Amer 68, Est GFR (MDRD) Non-Af 56 L, BUN/Creatinine Ratio 12.8, Glucose 133 H, Calcium 8.8, Troponin I < 0.015 Current Medications Acetaminophen (Acetaminophen 325 Mg Tablet) 650 mg PO Q6H PRN PRN PRN Reason: Pain Score 1-10/Temp > 100.7 F Clopidogrel Bisulfate (Clopidogrel Bisulfate 75 Mg Tablet) 75 mg PO DAILY JUN Hydralazine HCl (Hydralazine 20 Mg/Ml Vial) 5 mg IV Q30M PRN PRN Reason: to maintain BP goals Labetalol HCl (Labetalol (Prefilled) 20 Mg/4 Ml) 10 - 20 mg IV Q10M PRN PRN PRN Reason: to Maintain BP Goals Melatonin (Melatonin 3 Mg Tablet) 3 mg PO QHS PRN PRN PRN Reason: INSOMNIA Ondansetron HCl (Ondansetron 4 Mg/2 Ml Vial) 4 mg IV Q8H PRN PRN PRN Reason: NAUSEA/VOMITING Sodium Chloride (0.9% Saline Lock 10 Ml Syringe) 10 - 40 ml IV UD PRN PRN Reason: SALINE FLUSH Assessment/Plan All Active Problems (Last Updated 04/05/19 @ 11:01 by Matilda Ayala) Occipital stroke (Acute) Elevated blood pressure reading in office without diagnosis of hypertension (Acute) Preop cardiovascular exam (Acute) Incomplete right bundle branch block (Acute) Essential (primary) hypertension (Ruled-out) 1. A subacute left occipital CVA/history of chronic right parietal CVA/HTN/HLD -MRI confirmed subacute CVA, normal CTA -PT/OT/speech -He is already on aspirin, will add Plavix -We will increase his Lipitor to 40 mg every night -We will obtain echo in a.m. 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 DM 2 -He is on Metformin at home which we will hold -We will place him on sliding scale insulin and make adjustments as necessary. Accu-Cheks AC at bedtime DVT: Ambulation Inpatient E&M: [id number] Init Hosp L2
[2020-06-10 21:40] LABS: Bedside Glucose 116 mg/dL (70-110)
[2020-06-10] MEDS: Atorvastatin Calcium 40 MG Tablet PO (21:41)
[2020-06-11] VITALS (7 sets, daily range): BP systolic 145–163; BP diastolic 74–98; PULSE 62–86; RESP 16–18; TEMP 36.3–36.6; O2SAT 94–98; BMI 28.8
[2020-06-11 06:41] LABS: Bedside Glucose 159 mg/dL (70-110)
[2020-06-11 07:02] LABS: Cholesterol 165 mg/dL (200); High Density Lipoprotein 35 mg/dL; Triglycerides 213 mg/dL; Very Low Density Lipoprotein 43 mg/dL (5-40)
[2020-06-11] MEDS: Lisinopril 10 MG Tablet PO (09:11)
[2020-06-11] MEDS: Aspirin 81 MG TAB.CHEW PO (09:11)
[2020-06-11] MEDS: Clopidogrel Bisulfate 75 MG Tablet PO (09:11)
[2020-06-11] MEDS: Diclofenac 75 MG Tablet PO (09:11)
--- NOTE | 2020-06-11 09:30 | CASEMGMT ---
PHQ-9 completed, no indications of depression reported by pt. MEGGAN Stout
--- NOTE | 2020-06-11 10:23 | DCINST_ITS ---
- Discharge Diagnoses Current Active Problems: Current Active and Chronic Problems (Last Updated 04/05/19 @ 11:01 by Matilda Ayala) Occipital stroke (Acute) Elevated blood pressure reading in office without diagnosis of hypertension (Acute) Incomplete right bundle branch block (Acute) Hyperlipidemia (Chronic) Prostate cancer (Chronic) You will use the following diet at home:: Cardiac Your food should be the consistency of: Regular Your liquids should be the consistency of: Regular/Thin Discharge Activity: Return to Normal Activity Call your doctor if you observe: Fever of 101 or Higher, Shortness of breath, Dizziness, Fainting spells, Swelling in the ankles, Chest pain, Increased palpitations (irregular heartbeat) Instructions: ED Stroke, Completed Additional Instructions: Follow-up with your primary care physician in 3 to 5 days to obtain a BMP to monitor renal function since I started you on lisinopril for your blood pressure. Allergies/Adverse Reactions: Allergies No Known Allergies Allergy (Unverified 07/21/18 08:57) Medications to take at Discharge aspirin 81 mg chewable tablet 81 mg PO DAILY 07/21/18 diclofenac sodium 75 mg tablet,delayed release 75 mg PO QODAY 07/21/18 metformin 500 mg tablet 500 mg PO BID 07/21/18 omega-3 fatty acids 1,000 mg capsule 1,000 mg PO DAILY 07/21/18 Atorvastatin Calcium [Lipitor] 40 mg PO QHS #30 tab 06/11/20 Clopidogrel Bisulfate [Plavix] 75 mg PO DAILY #30 tab 06/11/20 Lisinopril [Zestril] 10 mg PO DAILY #30 tab 06/11/20 Primary Care Physician: Julia Torres MD [Primary Care Provider] - Please follow up with your Primary Care Physician in: 3-5 days Test Results: Test results from this visit will be discussed in further detail at your follow- up appointment, if applicable. Please Follow Up With: Ellis Carrillo MD When: 1-2 weeks
--- NOTE | 2020-06-11 10:30 | CASEMGMT ---
CLARK VARGAS assessment: Face to Face with patient for initial transition planning/care coordination assessment. CLARK VARGAS introduced self and role at [facility], pt voices understanding and consents to assessment. Pt is sitting up in bed in no distress. Pt is A/Ox4 and answers all questions appropriately. Care providers, pharmacy, and demographics verified. Presentation: Pt has decreased vision out of right eye onset 1400 day prior. also w/ headache, pt sent by Dr. Rubin Admitting dx: CVA PCP: Brian Specialists: Pt states no current specialists. Preferred Pharmacy: [facility] Insurance: MCR A/B, MMO Prescription Benefit: MCR D Living Will/HPOA: Pt states does not have LW/HPOA and declines AD info. LNOK: Raegan Valdez, Living Arrangements: Pt states lives with in 1 story condo with ramp in and 2 steps onto back patio. Pt states is independent with ADL's. Transportation: Pt drives self and states no transportation concerns. DME/HHC: Pt has grab bars in shower and states no need for any further DME. Pt states no hx of SNF but has had HHC in the past s/p knee replacement. Pt states no concerns with going home at time of discharge. Pt states is retired. Pt states does not smoke cigarettes or drink ETOH. Pt states no further concerns/needs. CM to follow for any further discharge planning/needs. Advised pt to ask for CM if any further questions/concerns/needs arise, voices understanding. Pt Goal: Home Plan[place] CLARK VARGAS
[2020-06-11] MEDS: 0.9% Saline Lock 10 ML Syringe IV (11:15)
[2020-06-11 11:16] LABS: Bedside Glucose 170 mg/dL (70-110)
[2020-06-11] MEDS: Insulin Lispro 100 UNIT/ML INSULN.PEN SC (11:28)
--- NOTE | 2020-06-11 12:08 | PHA.DC.MC ---
Pharmacy Service has performed discharge medication reconciliation and counseling for this patient. 1. CLOPIDOGREL 75MG PO DAILY 2. LISINOPRIL 10MG PO DAILY The patient's discharge medication list was reviewed for discrepancies and discrepancies were resolved. Home Medications aspirin 81 mg chewable tablet 81 mg PO DAILY 07/21/18 diclofenac sodium 75 mg tablet,delayed release 75 mg PO QODAY 07/21/18 metformin 500 mg tablet 500 mg PO BID 07/21/18 omega-3 fatty acids 1,000 mg capsule 1,000 mg PO DAILY 07/21/18 Atorvastatin Calcium [Lipitor] 40 mg PO QHS #30 tab 06/11/20 Clopidogrel Bisulfate [Plavix] 75 mg PO DAILY #30 tab 06/11/20 Lisinopril [Zestril] 10 mg PO DAILY #30 tab 06/11/20 The patient was counseled on the following discharge medications and changes in medications for homegoing were reviewed. The Reason for Use, instructions for use, and potential side effects were reviewed for all new medications. The patient's questions regarding all of their medications were answered. The patient was able to verbally demonstrate an understanding of their discharge medications.
--- NOTE | 2020-06-11 13:19 | DS.PCM_ITS ---
Discharge Date and Diagnosis - Problem List Patient Problems: Active and Suspected Problems (Last Updated 04/05/19 @ 11:01 by Matilda Ayala) Occipital stroke (Acute) Elevated blood pressure reading in office without diagnosis of hypertension (Acute) Incomplete right bundle branch block (Acute) Date of Admission: 06/10/20 Date of Discharge: 06/11/20 - Primary Discharge Diagnosis Acute Problems: Active Problems (Last Updated 04/05/19 @ 11:01 by Matilda Ayala) Occipital stroke (Acute) Elevated blood pressure reading in office without diagnosis of hypertension (Acute) Incomplete right bundle branch block (Acute) - Secondary Discharge Diagnosis Chronic Problems: Chronic Problems (Last Updated 04/05/19 @ 11:01 by Matilda Ayala) Hyperlipidemia (Chronic) Prostate cancer (Chronic) Hospital Course and Treatment Imaging Results: Clinical Impression(s) from Imaging Studies Brain CT 06/10/20 11:00 IMPRESSION: Chronic involutional changes of the brain. Findings suggestive of an acute focal CVA involving the posterior medial aspect of the left occipital lobe. N.B. : The above information has been verbally conveyed by Guicho Nelson MD to Holger Herring on 06/10/2020 11:25:07 (ET). Electronically Signed: Guicho Nelson MD at 11:26 EDT , Service support , ADDENDUM: 06/10/20 1133 IMPRESSION: Chronic involutional changes of the brain. Findings suggestive of an acute focal CVA involving the posterior medial aspect of the left occipital lobe. N.B. : The above information has been verbally conveyed by Guicho Nelson MD to Holger Herring on 06/10/2020 11:25:07 (ET). Electronically Signed: Guicho Nelson MD at 11:26 EDT , Service support , Head/Neck CTA 06/10/20 11:02 IMPRESSION: Normal CTA Head and neck with contrast. N.B. : The above information has been verbally conveyed by Guicho Nelson MD to Holger Herring on 06/10/2020 11:34:42 (ET). Electronically Signed: Guicho Nelson MD at 11:35 EDT , Service support , ADDENDUM: 06/10/20 1142 IMPRESSION: Normal CTA Head and neck with contrast. N.B. : The above information has been verbally conveyed by Guicho Nelson MD to Holger Herring on 06/10/2020 11:34:42 (ET). Electronically Signed: Guicho Nelson MD at 11:35 EDT , Service support , Chest X-Ray 06/10/20 11:45 IMPRESSION: No acute abnormality is seen. Electronically Signed: Guicho Nelson MD at 12:16 EDT , Service support , Brain MRI 06/10/20 14:02 IMPRESSION: Involutional changes of the brain, as described above. Subacute infarct of the left occipital lobe. Electronically Signed: Alireza Bernal MD at 15:59 EDT Tel , Service support , ADDENDUM: 06/10/20 1713 IMPRESSION: Involutional changes of the brain, as described above. Subacute infarct of the left occipital lobe. N.B. : The above information has been verbally conveyed by Alireza Bernal MD to EZRA VALVERDE MD, on 06/10/2020 17:06:05 (ET). Electronically Signed: Alireza Bernal MD at 15:59 EDT Tel , Service support , Echo: Interpretation Summary Normal LV systolic function The estimated ejection fraction is 60-65% %. Trivial mitral valve insufficiency. There is moderate mitral annular calcification. Operations: None Procedures: 2-D Echocardiogram Summary of Care Provided: Per HPI: The patient is a 70 year old M with a PMH as below who presents to the hospital today after following up with his ripening room operator. He woke up this morning and had vision problems in the right. The ED physician was actually notified by the ripening room operator that the patient was having inferior right homonymous hemianopsia. He is also been having a headache since he had symptom onset on Wednesday. [facility] neurology was contacted and felt that he was having an ischemic stroke. He underwent a CTA of the head and neck which was normal, CT scan of the brain demonstrated an acute focal CVA involving the posterior medial aspect of the left occipital lobe. He denies any numbness or tingling in his extremities or weakness. Hospital Course: 1. Subacute left occipital CVA/history of chronic right parietal CVA/HTN/HLD- 70-year-old male who started having symptoms on his right eye at 2 PM on Wednesday went to his ripening room operator on Wednesday who advised him to present to the ER. He was found to have a left occipital CVA. He was on aspirin already so he was added on to Plavix, and he was on 10 mg of Lipitor p.o. daily and this was transitioned to 40 mg p.o. daily on discharge. He also had an echo which was unremarkable. A CTA of his head and neck was normal. I discussed with him that we do not have in-house neurology however he have teleneurology and he elected to go home today and follow-up with a neurologist as an outpatient. I do recommend that he have a Holter monitor for 48 hours, he has not been in A. fib while here but given his previous history of a stroke may be beneficial to rule out as best as possible A. fib. Also he was hypertensive on admission over 160 systolic, at one point he was 199 systolic. He has been hypertensive for quite a while therefore we will start him on lisinopril 10 mg p.o. daily. I do recommend that he follow-up with his PCP in 3 to 5 days for an outpatient BMP to monitor his renal function. He was cleared by PT/OT as well as speech therapy without any further therapy on discharge. 2. Type 2 diabetes, obesity or chronic medical conditions which complicate his care. His home medications were continued where appropriate. Patient Problems: Active and Suspected Problems (Last Updated 04/05/19 @ 11:01 by Matilda Ayala) Occipital stroke (Acute) Elevated blood pressure reading in office without diagnosis of hypertension (Acute) Incomplete right bundle branch block (Acute) - Physical Exam Vitals/I&O's: Vital Signs Temp Pulse Resp BP Pulse Ox 97.4 F L 86 18 151/84 H 94 06/11/20 09:10 06/11/20 09:10 06/11/20 09:10 06/11/20 09:10 06/11/20 09:10 Oxygen Delivery Method Room Air Weight: 194 lb 14.218 oz Body Mass Index (BMI) 28.8 Intake and Output for Last 24 Hours 06/09/20 06/10/20 06/11/20 23:59 23:59 23:59 Intake Total 340 / 340 460 / 460 Balance 340 / 340 460 / 460 General: Alert, Oriented x3, Cooperative, No apparent distress HEENT: Atraumatic, PERRLA, EOMI, Normocephalic Oral: Moist Mucosa Neck: Supple, No JVD Lungs: Clear to auscultation, Normal air movement, No rhonchi, No wheeze, No rales Cardiovascular: Regular rate, Regular Rhythm, Normal S1, Normal S2, No murmurs Abdomen: Soft, Non Tender, Non-Distended, No Hepato-splenomegaly Extremities: No edema, Capillary Refill Less than 3 Seconds Skin: No rashes, No breakdown Neurological: Cranial nerves II-XII grossly intact, Deep Tendon Reflexes 2+/4 and Symmetrical, Neuro grossly intact, Motor Exam 5/5 strength throughout, Sensory exam intact to light touch and pain, - - Vision change in the right inferior field Psych/Mental Status: Normal Affect, Appropriate Laboratory Results 06/10/20 21:31: POC Glucose 116 H 06/11/20 05:55: Triglycerides 213 H, Cholesterol 165, LDL Cholesterol 87, VLDL Cholesterol 43 H, HDL Cholesterol 35 L 06/11/20 06:33: POC Glucose 159 H 06/11/20 11:10: POC Glucose 170 H Current Medications Acetaminophen (Acetaminophen 325 Mg Tablet) 650 mg PO Q6H PRN PRN PRN Reason: Pain Score 1-10/Temp > 100.7 F Aspirin (Aspir[facility] 81 Mg [facility].Chew) [facility] Admin: 06/11/20 09:11 Dose: 81 mg Documented by: Atorvastatin Calcium (Atorvastatin Calcium 40 Mg Tablet) 40 mg PO QHS [facility] Last Admin: 06/10/20 21:41 Dose: 40 mg Documented by: Clopidogrel Bisulfate (Clopidogrel Bisulfate 75 Mg Tablet) 75 mg PO DAILY [facility] Last Admin: 06/11/20 09:11 Dose: 75 mg Documented by: Dextrose (Dextrose 50%-Water 25 Gm/50 Ml Disp.Syrin) 0 gm IV X1 PRN; Protocol PRN Reason: Hypoglycemia Diclofenac Sodium (Diclofenac 75 Mg Tablet) 75 mg PO QODAY [facility] Last Admin: 06/11/20 09:14 Dose: Not Given Documented by: Glucagon (Glucagon 1 Mg/Ml Syringe) 1 mg IM .X1 PRN PRN Reason: Hypoglycemia Hydralazine HCl (Hydralazine 20 Mg/Ml Vial) 5 mg IV Q30M PRN PRN Reason: to maintain BP goals Insulin Human Lispro (Insulin Lispro 100 Unit/Ml Insuln.Pen) 0 unit [facility]; Protocol Last Admin: 06/11/20 11:28 Dose: 2 u Documented by: Labetalol HCl (Labetalol (Prefilled) 20 Mg/4 Ml) 10 - 20 mg IV Q10M PRN PRN PRN Reason: to Maintain BP Goals Lisinopril (Lisinopril 10 Mg Tablet) 10 mg PO DAILY [facility] Last Admin: 06/11/20 09:11 Dose: 10 mg Documented by: Melatonin (Melatonin 3 Mg Tablet) 3 mg PO QHS PRN PRN PRN Reason: INSOMNIA Ondansetron HCl (Ondansetron 4 Mg/2 Ml Vial) 4 mg IV Q8H PRN PRN PRN Reason: NAUSEA/VOMITING Sodium Chloride (0.9% Saline Lock 10 Ml Syringe) 10 - 40 ml IV UD PRN PRN Reason: SALINE FLUSH Last Admin: 06/11/20 11:15 Dose: 10 ml Documented by: Discharge Activity: Return to Normal Activity Call your doctor if you observe: Fever of 101 or Higher, Shortness of breath, Dizziness, Fainting spells, Swelling in the ankles, Chest pain, Increased palpitations (irregular heartbeat) Home Medications: Medications to take at Discharge aspirin 81 mg chewable tablet 81 mg PO DAILY 07/21/18 diclofenac sodium 75 mg tablet,delayed release 75 mg PO QODAY 07/21/18 metformin 500 mg tablet 500 mg PO BID 07/21/18 omega-3 fatty acids 1,000 mg capsule 1,000 mg PO DAILY 07/21/18 Atorvastatin Calcium [Lipitor] 40 mg PO QHS #30 tab 06/11/20 Clopidogrel Bisulfate [Plavix] 75 mg PO DAILY #30 tab 06/11/20 Lisinopril [Zestril] 10 mg PO DAILY #30 tab 06/11/20 Following Prescriptions Were Given to Patient: Atorvastatin Calcium [Lipitor] 40 mg PO QHS #30 tab Transmission Status: Received by [facility] Clopidogrel Bisulfate [Plavix] 75 mg PO DAILY #30 tab Transmission Status: Received by [facility] Lisinopril [Zestril] 10 mg PO DAILY #30 tab Transmission Status: Received by [facility] Other Amb Orders: Cardiac Holter Monitor, Set-Up [[facility]] Location: None Selected Primary Care Physician: Julia Torres MD [Primary Care Provider] - Please follow up with your Primary Care Physician in: 3-5 days Please Follow Up With: Ellis Carrlilo MD When: 1-2 weeks Please Follow Up With: Julia Torres MD Patient Instructions: ED Stroke, Completed Disposition: Home Minutes spent on discharge:: 35 Patient Condition:: Stable Medical Necessity - Tobacco Use Smoking Status: Unknown if ever smoked Tobacco Use: Non-smoker Meaningful Use Info Meaningful Use Diagnoses (Choose all that apply): None applicable Inpatient E&M: 83991 Disch Hosp
== END 2020-06-11 13:59 | disposition home or self-care (01) | DRG 66 ==
LOC: ED 12:24 → PCU 13:29
PROVIDERS: Admitting Provider Family Medicine; Emergency Provider Emergency Medicine; PCP Family Medicine; Visit Provider Family Medicine
DX: I63.9 Cerebral infarction, unspecified (principal); R03.0 Elevated blood-pressure reading, without diagnosis of hypertension; R29.701 NIHSS score 1; I45.10 Unspecified right bundle-branch block; H53.461 Homonymous bilateral field defects, right side; E11.9 Type 2 diabetes mellitus without complications; E78.5 Hyperlipidemia, unspecified; N40.0 Benign prostatic hyperplasia without lower urinary tract symptoms; M19.90 Unspecified osteoarthritis, unspecified site; Z86.73 Personal history of transient ischemic attack (TIA), and cerebral infarction without residual deficits; Z85.46 Personal history of malignant neoplasm of prostate; Z79.82 Long term (current) use of aspirin; Z79.84 Long term (current) use of oral hypoglycemic drugs; Z79.899 Other long term (current) drug therapy
CPT/HCPCS: 70450; 70496; 70498; 70551; 71045; 80048; 80061; 82962; 84484; 85025; 85610; 85730; 92610; 93005; 93306; 94762; 97161; 97166; 97802; 99284; Q9957; Q9967; A4216

== ENCOUNTER → 2020-06-11 13:35 | Outpatient (CLI) | payer MEDICARE, OTHER, SELFPAY ==
[2020-06-11 11:21] VITALS: BMI 28.8
== END ==
PROVIDERS: PCP Family Medicine; Visit Provider Family Medicine
DX: Z86.73 Personal history of transient ischemic attack (TIA), and cerebral infarction without residual deficits (principal)
CPT/HCPCS: 93225; 93226

== ENCOUNTER → 2020-06-19 10:05 | Outpatient (CLI) | payer MEDICARE, OTHER, SELFPAY ==
[2020-06-18 09:11] VITALS: BMI 30.4
[2020-06-19 11:15] LABS: Anion Gap 5 (5-15); BUN 21 mg/dL (7-18); BUN/Creat Ratio 14.3 RATIO (10-20); Calcium,Total 8.9 mg/dL (8.5-10.1); Chloride 102 mmol/L (98-107); Creatinine, Serum 1.47 mg/dL (0.70-1.30); EST Glomerular Filtration Rate 50 mL/min (>60); Est Glom Filt Rate - Afr Amer 61 mL/min (>60); Glucose 257 mg/dL (74-106); Sodium Level 138 mmol/L (136-145)
== END ==
PROVIDERS: PCP Family Medicine; Referring Provider Family Medicine; Visit Provider Family Medicine
DX: Z86.73 Personal history of transient ischemic attack (TIA), and cerebral infarction without residual deficits (principal)
CPT/HCPCS: 36415; 80048

== ENCOUNTER → 2020-07-18 10:47 | Outpatient (CLI) | payer MEDICARE, OTHER, SELFPAY ==
[2020-06-18 09:11] VITALS: BMI 30.4
--- NOTE | 2020-07-18 10:49 | CDU_ITS ---
Reason For Study: acute L occipital CVA Rt. Velocities/BP Lt. Velocities/BP Prox CCA 139.4/22.5 cm/sec. Prox CCA 122.9/24.3 cm/sec. Mid CCA 112.0/20.6 cm/sec. Mid CCA 101.0/27.9 cm/sec. Dist CCA 75.3/10.2 cm/sec. Dist CCA 91.9/13.3 cm/sec. Prox ICA 67.9/11.4 cm/sec. Prox ICA 35.5/11.3 cm/sec. Mid ICA 61.8/18.8 cm/sec. Mid ICA 69.5/24.5 cm/sec. Dist ICA 78.4/25.4 cm/sec. Dist ICA 98.1/36.6 cm/sec. Rt. ICA/CCA = .7. Lt. ICA/CCA = 1.0. Prox ECA 117.4/4.2 cm/sec. Prox ECA 47.6/6.9 cm/sec. Rt. Vert. 61.8/16.3 cm/sec. Lt. Vert. 56.4/15.7 cm/sec. Right Extracranial There is homogeneous, smooth atherosclerotic plaque noted in the right common carotid artery. There is heterogeneous, smooth atherosclerotic plaque noted in the right internal carotid artery. There is intimal thickening but no significant atherosclerotic plaque noted in the right external carotid artery. Antegrade flow is noted in the right vertebral artery. Left Extracranial There is homogeneous, smooth atherosclerotic plaque noted in the left common carotid artery. There is heterogeneous, irregular atherosclerotic plaque noted in the left internal carotid artery. There is intimal thickening but no significant atherosclerotic plaque noted in the left external carotid artery. Antegrade flow is noted in the left vertebral artery. Procedure Carotid Duplex 70702. This is a Carotid Duplex examination using B-mode, color flow and specral Doppler. The exam was diagnostic. Exam performed in department. VL/Carotid Duplex Ultrasound Interpretation Summary Mild irregular plaque in the proximal right internal carotid artery with less t mccall 50% stenosis Less than 50% stenosis right external carotid artery Irregular calcific plaque with shadowing in the proximal left internal carotid artery with less than 50% stenosis Less than 50% stenosis left external carotid artery Patent and antegrade vertebral arteries bilaterally Ordering Physician: Oliver Desai Performed By: Corby Nichols RVT
== END ==
PROVIDERS: PCP Family Medicine; Visit Provider Psychiatry & Neurology Neurology
DX: I63.89 Other cerebral infarction (principal); I69.322 Dysarthria following cerebral infarction
CPT/HCPCS: 93880

== ENCOUNTER → 2021-07-21 | Outpatient (CLI) | payer MEDICARE, OTHER, SELFPAY ==
--- NOTE | 2021-07-21 09:42 | CDU_ITS ---
Reason For Study: Hx stroke, stenosis Rt. Velocities/BP Lt. Velocities/BP Prox CCA 135.7/18.8 cm/sec. Prox CCA 113.3/15.1 cm/sec. Mid CCA 137.5/17 cm/sec. Mid CCA 117/17.6 cm/sec. Dist CCA 101/13.3 cm/sec. Dist CCA 85.1/13.9 cm/sec. Prox ICA 93.7/5.3 cm/sec. Prox ICA 55.6/10.2 cm/sec. Mid ICA 77.7/18.8 cm/sec. Mid ICA 92.2/28.6 cm/sec. Dist ICA 74/17.9 cm/sec. Dist ICA 86.4/29.8 cm/sec. Rt. ICA/CCA = 0.69. Lt. ICA/CCA = 0.81. Prox ECA 155.8/6 cm/sec. Prox ECA 92.5/9 cm/sec. Rt. Vert. 51.9/10.2 cm/sec. Lt. Vert. 63/16.3 cm/sec. Right Extracranial There is homogeneous, smooth atherosclerotic plaque noted in the right common carotid artery. There is heterogeneous, irregular atherosclerotic plaque noted in the right internal carotid artery. There is intimal thickening but no significant atherosclerotic plaque noted in the right external carotid artery. Antegrade flow is noted in the right vertebral artery. Left Extracranial There is homogeneous, smooth atherosclerotic plaque noted in the left common carotid artery. There is heterogeneous, irregular atherosclerotic plaque noted in the left internal carotid artery. There is intimal thickening but no significant atherosclerotic plaque noted in the left external carotid artery. Antegrade flow is noted in the left vertebral artery. Procedure Carotid Duplex [id number]. This is a Carotid Duplex examination using B-mode, color flow and specral Doppler. Exam performed in department. VL/Carotid Duplex Ultrasound Interpretation Summary Irregular calcific plaque at the proximal right internal carotid artery with le ss than 50% stenosis Less than 50% stenosis right external carotid artery Irregular calcific plaque in the proximal left internal carotid artery with les s than 50% stenosis Less than 50% stenosis left external carotid artery Patent and antegrade vertebral arteries bilaterally No change from the previous examination of July 18, 2020 Ordering Physician: Maya Scanlon Referring Physician: Julia Torres Performed By: Shreya Foley RVT
== END | disposition home or self-care (01) ==
LOC: CVS 09:41
PROVIDERS: PCP Family Medicine; Referring Provider Nurse Practitioner Family; Visit Provider Nurse Practitioner Family
DX: I65.29 Occlusion and stenosis of unspecified carotid artery (principal); Z86.73 Personal history of transient ischemic attack (TIA), and cerebral infarction without residual deficits
CPT/HCPCS: 93880

== ENCOUNTER → 2021-07-28 | Outpatient (CLI) | payer MEDICARE, OTHER, SELFPAY ==
[2021-07-28 14:10] LABS: Anion Gap 5 (5-15); BUN 20 mg/dL (7-18); BUN/Creat Ratio 16.5 RATIO (10-20); Chloride 106 mmol/L (98-107); Creatinine, Serum 1.21 mg/dL (0.70-1.30); EST Glomerular Filtration Rate 63 mL/min (>60); Est Glom Filt Rate - Afr Amer 76 mL/min (>60); Glucose 87 mg/dL (74-106); Potassium 4.2 mmol/L (3.5-5.1); Sodium Level 139 mmol/L (136-145); T4 Free Direct 1.12 ng/dL (0.76-1.46); Thyroid Stim Hormone (TSH) 1.59 uIU/mL (0.358-3.74)
== END | disposition home or self-care (01) ==
LOC: LAB 12:33
PROVIDERS: PCP Family Medicine; Referring Provider Nurse Practitioner Family; Visit Provider Nurse Practitioner Family
DX: I48.91 Unspecified atrial fibrillation (principal); I48.92 Unspecified atrial flutter; I10 Essential (primary) hypertension; E78.5 Hyperlipidemia, unspecified
CPT/HCPCS: 36415; 80048; 84439; 84443

== ENCOUNTER 2021-08-21 08:00 | Outpatient (RCR) | payer MEDICARE, OTHER, SELFPAY ==
--- NOTE | 2021-06-16 08:18 | HP.SP.AD ---
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 Other Relevant Medical History/Diagnoses/Surgery: TYRESE GORDON is a 71-year-old male presenting to [facility] on 06/13/2021 s/p CVA to left anterior cerebral artery. Pt?s medical hx is significant for left occipital ischemic CVA in May 2020 as well as an additional infarct in the right parietal lobe which was asymptomatic. Following CVA in May 2020, Pt has had a visual field deficit, but it has gradually been improving over time. Per chart review, he had an eye exam with his bookkeeper assistant (Dr. Rubin) in the latter part of 2020. Per neurology visit on 06/09/2021, ?Pt now presents with a recurrent stroke and a left anterior cerebral artery distribution that manifested with right leg weakness that has now nearly completely resolved. The patient has baseline mild dysarthria which he reports has been present since his stroke in May 2020. His speech output has been slightly diminished since his stroke earlier in May 2021 and he has exhibited slight impairment of comprehension.? Pt was subsequently referred to speech therapy for further evaluation. Medications related to this diagnosis: diclofenac sodium (75 mg) QD; metformin (500 mg) BID; omega-3 fatty acids (1,000 mg) DAILY; lisinopril (10 mg) DAILY; aspirin (81 mg chewable) BID; atorvastatin (40 mg) 80 mg QHS; clopidogrel (75 mg) DAILY Smoking Status: Unknown if ever smoked Hx Smoking: No Hx Tobacco Use: No - Pain Is pain an issue with your current prescribed condition?: No - Personal Education History: High School Occupation: [employer] Right Hearing Abillity: Use of Hearing Aid, Deaf Left Hearing Abillity: Use of Hearing Aid, Deaf Visual Assistive Devices: Glasses Patients Living Arrangements: With Significant Other Patient Allergies - Allergies Allergies No Known Allergies Allergy (Verified 06/09/21 14:11) CLQT - CLQT CLQT Administered: Yes CLQT: Cognitive Linguistic Quick Test (CLQT) is a criterion - referenced assessment designed for adults between the ages of 18 and 89 with known or suspected neurological dysfuntions. The CLQT is to assess strength and weaknesses in five cognitive domains. Severity ratings are within normal limits, mild, moderate, severe deficits. The subtests are as follows: Date: 06/16/21 - Attention Attention: WNL - Memory Memory: Severe - Executive Functions Executive Functions: WNL - Language Language: Moderate - Visuospatial Skills Visuospatial Skills: WNL - Composite Severity Rating Composite Severity Rating: Mild - Clock Drawing Severity Rating Clock Drawing Severity Rating: WNL - CLQT Comments Subtest Comments During story retell task, Pt recalled 3 of 18 possible details from the story following verbal encouragement cues - Pt reporting that he did not remember anything about the story. Pt answered y/n questions following the story with 66% acc independently. During the design memory task which is a nonlinguistic task used to assess visual discrimination & analysis, attention, and visual memory, impulsivity, perseveration, Pt answered with 0% acc via providing no response on any of the 3 trials. Pt reporting that he was not able to remember the 2 images when they were mixed in with 4 others. Plan - Plan Plan: Will recommend Pt for weekly outpatient speech therapy to address mod-severe cognitive-linguistic impairment characterized by deficits in immediate and short-term memory, auditory comprehension, language processing, and mild dysarthria. Pt would benefit from training in compensatory strategies for recall and word retrieval, as well as oral motor exercises, verbal and visual modeling, verbal/visual and tactile cuing, repeated practice, and immediate feedback to improve articulation and coordination. Without skilled ST services, the Pt is at risk for decreased independence completing daily living tasks and difficulty communicating basic, medical, emergent, social wants & needs, and interacting with family/friends at home during social interactions. - Frequency Frequency: 1x/Week Duration: 6 Weeks - Prognosis Prognosis: Excellent - Goal #1-5 Goal #1: Tyrese will produce single and multisyllable words (e.g., S, S blends, SH) with the use of speech intelligibility strategies demonstrating errors on less than 10% of words produced given minimal verbal cues across 3 consecutive sessions to improve speech clarity. Goal #2: Tyrese will complete basic to mod complex immediate/short-term/working memory and auditory comprehension tasks with 80% acc independently across 3 measured opportunities. Goal #3: Tyrese will demonstrate use of word finding strategies to complete complex concrete and abstract convergent and divergent naming tasks with 80% acc independently across 3 measured opportunities to improve word retrieval and language processing. Education - Patient has Indicated that the Following Identified Educational Needs: None The Patient has indicated that they have no educational or learning abilities that may effect their care.: Yes - Patient Instruction Patient Education: Diagnosis, Treatment Plan, Goals Person Taught: Patient, Family Teaching Method: Discussion Response to teaching: Return demonstration, Verbalize understanding, Reinforcement needed
--- NOTE | 2021-08-27 15:44 | HP.SP.DC ---
ST Discharge Summary - Discharged: Discharge: Pt was seen for initial speech/language/cognitive evaluation at [facility] on June 13, 2021, s/p dysarthria dx following a CVA. Following evaluation, Pt also presenting with mild expressive aphasia and severe memory difficulties. Pt attended 11 additional consecutive sessions following initial evaluation to target word retrieval, divergent naming, speech intelligibility strategies, and memory. Suspect d/t Pt?s hearing loss and previous history of speech therapy, Pt?s speech is close to baseline at this time. Following re-evaluation of Pt?s current level of cognitive function, self-report, and caregiver report, Pt deemed appropriate for d/c from speech therapy at this time. Pt provided w/home carry over activities to continue targeting complex memory tasks. Pt discharged from speech therapy caseload on this date, August 27, 2021. Discussed Pt to return to therapy should he notice a change in cognitive or speech status. Thank you for allowing me to participate in the care of your Pt. Will reevaluate at Pt?s request following script from physician.
== END 2021-08-21 19:00 | disposition home or self-care (01) ==
LOC: SP 08:00
PROVIDERS: PCP Family Medicine; Referring Provider Psychiatry & Neurology Neurology; Visit Provider Psychiatry & Neurology Neurology
DX: I69.322 Dysarthria following cerebral infarction (principal)
CPT/HCPCS: 92507; 92523; 97129; 97130

== ENCOUNTER → 2021-12-03 | Outpatient (CLI) | payer MEDICARE, OTHER, SELFPAY ==
[2021-12-03 10:25] LABS: Hematocrit 44.3 % (40-54); Hemoglobin 14.8 g/dL (13.0-16.5); Mean Corp Hgb Conc 33.4 g/dL (32-36); Mean Corpuscular Hgb 30.8 pg (27.0-32.0); Mean Corpuscular Volume 92.1 fL (80-94); Mean Platelet Vol. 9.9 fl (6.2-12.0); Platelet Count 194 K/mm3 (150-450); RBC Distribution Width CV 13.6 % (11.6-14.6); RBC Distribution Width SD 46.1 fl (35.1-43.9); Red Blood Count 4.81 M/mm3 (4.6-6.2); White Blood Count 7.3 K/mm3 (4.4-11.0)
[2021-12-03 11:05] LABS: Vitamin B12 380 pg/mL (211-911)
[2021-12-03 11:15] LABS: ALB/GLOB Ratio 0.9 RATIO (0.9-2.4); AST(SGOT) 14 U/L (15-37); Alanine Aminotransfer ALT/SGPT 27 U/L (16-61); Albumin, Serum 3.4 g/dL (3.2-5.0); Alkaline Phosphatase 103 U/L (45-117); Anion Gap 5 (5-15); BUN 26 mg/dL (7-18); BUN/Creat Ratio 20.5 RATIO (10-20); Calcium,Total 8.8 mg/dL (8.5-10.1); Chloride 108 mmol/L (98-107); Creatinine, Serum 1.27 mg/dL (0.70-1.30); EST Glomerular Filtration Rate 59 mL/min (>60); Est Glom Filt Rate - Afr Amer 72 mL/min (>60); Globulin 3.6 g/dL (2.2-4.2); Glucose 120 mg/dL (74-106); Potassium 4.4 mmol/L (3.5-5.1); Sodium Level 141 mmol/L (136-145); Thyroid Stim Hormone (TSH) 2.29 uIU/mL (0.358-3.74)
[2021-12-09 16:33] LABS: Vitamin B1, Thiamine 115.3 nmol/L (66.5-200.0)
== END | disposition home or self-care (01) ==
PROVIDERS: PCP Family Medicine; Referring Provider Psychiatry & Neurology Neurology; Visit Provider Psychiatry & Neurology Neurology
DX: I65.23 Occlusion and stenosis of bilateral carotid arteries (principal); F03.90 Unspecified dementia, unspecified severity, without behavioral disturbance, psychotic disturbance, mood disturbance, and anxiety; E78.5 Hyperlipidemia, unspecified
CPT/HCPCS: 36415; 80053; 82607; 82746; 84425; 84443; 85027

== ENCOUNTER → 2022-01-28 | Outpatient (CLI) | payer MEDICARE, OTHER, SELFPAY ==
[2022-01-28 10:33] LABS: Absolute Lymphocyte Count 1.29 X10^3/uL (0.83-4.51); Basophil# 0.06 X10^3/uL; Basophil% 0.8 % (0-1); Eosinophil# 0.17 X10^3/uL; Eosinophils% 2.3 % (0-5); Hematocrit 43.6 % (40-54); Hemoglobin 14.7 g/dL (13.0-16.5); Lymphocyte # 1.29 X10^3/ul (0.83-4.51); Lymphocyte % 17.5 % (19-41); Mean Corp Hgb Conc 33.7 g/dL (32-36); Mean Corpuscular Hgb 31.2 pg (27.0-32.0); Mean Corpuscular Volume 92.6 fL (80-94); Mean Platelet Vol. 9.7 fl (6.2-12.0); Monocyte# 0.81 X10^3/uL; NRBC Flagged by Analyzer 0 % (0-5); Neutrophil # 5.01 X10^3/uL (2.7-7.7); Neutrophil % 67.9 % (47-70); Platelet Count 204 K/mm3 (150-450); RBC Distribution Width CV 13.5 % (11.6-14.6); RBC Distribution Width SD 46.1 fl (35.1-43.9); Red Blood Count 4.71 M/mm3 (4.6-6.2); White Blood Count 7.4 K/mm3 (4.4-11.0)
[2022-01-28 10:59] LABS: Microalbumin,Random Urine 56.4 mg/L (NO RANGE EST.); Microalbumin:Creatinine Ratio 19.4 mg/g CRE (<30 mg/g CRE)
[2022-01-28 11:19] LABS: Vitamin B12 438 pg/mL (211-911)
[2022-01-28 11:30] LABS: ALB/GLOB Ratio 0.9 RATIO (0.9-2.4); AST(SGOT) 12 U/L (15-37); Alanine Aminotransfer ALT/SGPT 28 U/L (16-61); Albumin, Serum 3.4 g/dL (3.2-5.0); Alkaline Phosphatase 115 U/L (45-117); Anion Gap 5 (5-15); BUN 23 mg/dL (7-18); BUN/Creat Ratio 17.7 RATIO (10-20); Calcium,Total 8.8 mg/dL (8.5-10.1); Chloride 105 mmol/L (98-107); Cholesterol 107 mg/dL (200); EST Glomerular Filtration Rate 58 mL/min (>60); Est Glom Filt Rate - Afr Amer 70 mL/min (>60); Globulin 3.6 g/dL (2.2-4.2); Glucose 126 mg/dL (74-106); High Density Lipoprotein 36 mg/dL; PSA,Total - Annual Screen < 0.01 ng/mL (0.00-4.00); Potassium 4.2 mmol/L (3.5-5.1); Sodium Level 139 mmol/L (136-145); Triglycerides 111 mg/dL; Very Low Density Lipoprotein 22 mg/dL (5-40)
== END | disposition home or self-care (01) ==
LOC: LAB 09:12
PROVIDERS: PCP Family Medicine; Visit Provider Family Medicine
DX: E78.5 Hyperlipidemia, unspecified (principal); I48.0 Paroxysmal atrial fibrillation; E11.9 Type 2 diabetes mellitus without complications; E53.8 Deficiency of other specified B group vitamins; Z85.46 Personal history of malignant neoplasm of prostate; Z12.5 Encounter for screening for malignant neoplasm of prostate
CPT/HCPCS: 36415; 80053; 80061; 82043; 82570; 82607; 84153; 85025; G0103

== ENCOUNTER → 2022-11-23 | Outpatient (CLI) | payer MEDICARE, OTHER, SELFPAY | END | disposition home or self-care (01) | LOC: PSN 11:55 | PROVIDERS: PCP Family Medicine; Referring Provider Physician Assistant Medical; Visit Provider Physician Assistant Medical | DX: I49.3 Ventricular premature depolarization (principal); R00.1 Bradycardia, unspecified; I10 Essential (primary) hypertension; E78.5 Hyperlipidemia, unspecified | CPT/HCPCS: 93225; 93226 ==

== ENCOUNTER → 2022-12-10 | Outpatient (CLI) | payer MEDICARE, OTHER, SELFPAY ==
--- NOTE | 2022-12-10 11:24 | RAD_ITS ---
HISTORY: Pre op for heart cath. TECHNIQUE: XR Chest 2 Views. COMPARISON: 06/10/2020. FINDINGS: CARDIOMEDIASTINAL BORDERS: Cardiac silhouette within normal limits in size. Mediastinal contour unchanged with calcification of the aortic knob. LUNGS: Mild septal thickening in the lung bases. PLEURA: Very mild pleural effusions. OSSEOUS STRUCTURES: Degenerative change. RAD/Chest PA and Lateral IMPRESSION: Very mild pulmonary edema with trace pleural effusions. Electronically Signed: Deanne Mclean MD at 12:06 EDT ,
--- NOTE | 2022-12-10 11:24 | ECHOD_ITS ---
Version 2 Reason For Study: Palps, Fatigue, PVC's Procedure This was a 2D Doppler, Color Flow transthoracic echocardiogram. Exam performed in department. Left Ventricle Normal LV size. Mild concentric left ventricular hypertrophy. Left ventricular systolic function is normal. The estimated ejection fraction is 60 %. No regional wall motion abnormalities noted. Right Ventricle Normal RV size. Normal systolic function. Atria The left atrium is mildly enlarged. Normal right atrium. Mitral Valve Moderate focal mitral valve calcification of the anterior leaflet. Mild-Moderate (1-2+) eccentric mitral valve insufficiency. Tricuspid Valve Normal tricuspid valve. Moderate (2+) tricuspid valve insufficiency. Pulmonary artery systolic pressure is 54 mmHg. Aortic Valve Trisinus/trileaflet aortic valve. Mild focal aortic valve calcification. Pulmonic Valve Normal pulmonic valve. Great Vessels Normal aortic root. The pulmonary artery is normal size. Normal inferior vena cava. Pericardium/Pleural No pericardial effusion. MMode/2D Measurements & Calculations LVIDd: 4.7 cm IVSd: 1.2 cm Ao root diam: 3.4 cm LVIDs: 3.1 cm LVPWd: 1.3 cm RVDd: 4.0 cm FS: 33.6 % LAV(MOD-bp): 76.7 ml LVAd ap4: 33.7 cm2 LVAd ap2: 36.1 cm2 LAV(MOD-bp) Indexed: 37.8 ml/m2 LVLd ap4: 8.7 cm LVLd ap2: 8.9 cm LAV(MOD-sp2): 74.3 ml EDV(MOD-sp4): 110.3 ml EDV(MOD-sp2): 122.8 ml LAV(MOD-sp4): 75.3 ml EDV(sp4-el): 111.0 ml EDV(sp2-el): 123.8 ml LVAs ap4: 19.6 cm2 LVAs ap2: 19.1 cm2 LVLs ap4: 7.0 cm LVLs ap2: 7.7 cm ESV(MOD-sp4): 47.1 ml ESV(MOD-sp2): 42.7 ml ESV(sp4-el): 46.3 ml ESV(sp2-el): 40.3 ml EF(MOD-sp4): 57.2 % EF(MOD-sp2): 65.2 % EF(sp4-el): 58.3 % SV(MOD-sp4): 63.1 ml SV(MOD-sp2): 80.1 ml SV(sp4-el): 64.8 ml LA dimension(2D): 3.2 cm LA A4 area: 24.4 cm2 RA A4 area: 20.6 cm2 Doppler Measurements & Calculations MV E max pan: 124.5 cm/sec Ao V2 max: 125.8 cm/sec LV V1 max: 105.5 cm/sec Ao max P.9 mmHg LV V1 max P.5 mmHg PA V2 max: 92.6 cm/sec TR max pan: 356.6 cm/sec TR max P.9 mmHg ECHO/Echo Complete Interpretation Summary Normal LV size. Left ventricular systolic function is normal. The estimated ejection fraction is 60 %. Moderate focal mitral valve calcification of the anterior leaflet. Mild-Moderate (1-2+) eccentric mitral valve insufficiency. Mild focal aortic valve calcification. The left atrium is mildly enlarged. Mild concentric left ventricular hypertrophy. Ordering Physician: Priscilla Merino/Alexis Graves Referring Physician: Julia Torres Performed By: Ning Prince, JAZZY
[2022-12-10 13:45] LABS: Absolute Lymphocyte Count 1.55 X10^3/uL (0.83-4.51); Absolute Neutrophil Count 4.4 X10^3/uL (2.0-7.7); Basophil# 0.05 X10^3/uL; Basophil% 0.7 % (0-1); Eosinophil# 0.17 X10^3/uL; Eosinophils% 2.4 % (0-5); Hematocrit 46.7 % (40-54); Hemoglobin 14.4 g/dL (13.0-16.5); Lymphocyte # 1.55 X10^3/ul (0.83-4.51); Lymphocyte % 22.3 % (19-41); Mean Corp Hgb Conc 30.8 g/dL (32-36); Mean Corpuscular Hgb 29.4 pg (27.0-32.0); Mean Corpuscular Volume 95.5 fL (80-94); Mean Platelet Vol. 10.5 fl (6.2-12.0); Monocyte# 0.71 X10^3/uL; Monocyte% 10.2 % (0-10); NRBC Flagged by Analyzer 0 % (0-5); Neutrophil # 4.44 X10^3/uL (2.7-7.7); Neutrophil % 64.1 % (47-70); Platelet Count 192 K/mm3 (150-450); RBC Distribution Width CV 13.5 % (11.6-14.6); RBC Distribution Width SD 47.6 fl (35.1-43.9); Red Blood Count 4.89 M/mm3 (4.6-6.2); White Blood Count 6.9 K/mm3 (4.4-11.0)
[2022-12-10 14:07] LABS: International Normalized Ratio 1.2; Partial Thromboplast Time 35.5 Seconds (24.1-36.2); Prothrombin Time (Protime)PT. 15.5 SECONDS (11.7-14.9)
[2022-12-10 14:32] LABS: Anion Gap 1 (5-15); BUN 18 mg/dL (7-18); BUN/Creat Ratio 15.1 RATIO (10-20); Calcium,Total 8.8 mg/dL (8.5-10.1); Chloride 111 mmol/L (98-107); Creatinine, Serum 1.19 mg/dL (0.70-1.30); EST Glomerular Filtration Rate 64 mL/min (>60); Est Glom Filt Rate - Afr Amer 77 mL/min (>60); Glucose 95 mg/dL (74-106); Potassium 4.8 mmol/L (3.5-5.1); Sodium Level 141 mmol/L (136-145)
[2022-12-10 14:37] LABS: BNP,B-Type NATRIURETIC PEPTIDE 501.9 pg/mL (0-100)
== END | disposition home or self-care (01) ==
LOC: CVS 11:22
PROVIDERS: PCP Family Medicine; Referring Provider Physician Assistant Medical; Visit Provider Physician Assistant Medical
DX: I49.3 Ventricular premature depolarization (principal); I48.91 Unspecified atrial fibrillation; R00.1 Bradycardia, unspecified; R53.82 Chronic fatigue, unspecified; R06.09 Other forms of dyspnea
CPT/HCPCS: 36415; 71046; 80048; 83880; 85025; 85610; 85730; 93306

== ENCOUNTER → 2022-12-14 | Day surgery (SDC) | payer MEDICARE, OTHER, SELFPAY ==
--- NOTE | 2022-12-09 10:16 | PCM.HP.BLA ---
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 He underwent a Holter monitor on 11/23/2022 which demonstrated a significant PVC burden of 55%. He does acknowledge fatigue. He has no previous cardiac history other than hyperlipidemia, hypertension, and diabetes. He underwent a stress test on 04/06/2019 that was negative for ischemia. He underwent a 30-day event monitor in June 2021 with that showed an episode of atrial fibrillation. Intake Vital Signs See EMR Allergies See EMR Medications See EMR PFSH Medical History Arthritis BPH (benign prostatic hyperplasia) Carotid stenosis Essential (primary) hypertension Hearing loss History of CVA (cerebrovascular accident) (06/10/20) Hyperlipidemia Incomplete right bundle branch block Mitral valve annular calcification Prostate cancer Type 2 diabetes mellitus Surgical History History of herniorrhaphy History of transurethral resection of prostate Family History Father Myocardial infarction, Onset Age: 67Mother Myocardial infarction, Onset Age: 67 Social History Smoking Status: Never smoker Electronic Cigarette Use: not used second hand exposure: No alcohol intake: current alcohol intake frequency: holidays/special occasions only substance use type: does not use caffeine: No what type of physical activity do you participate in: walking frequency: 1-2 times per week mary/muslim: Nondenominational seatbelt use: always ROS Const Const: Positive for fatigue. Negative for weakness, headache(s), frequent falls, difficulty sleeping or excessive sweating Eyes Eyes: Negative for loss of peripheral vision, transient loss of vision, blurry vision, double vision or tunnel vision ENT ENT: Negative for headache(s), dizziness, Nosebleed/epistaxis or balance problems Cardio Chest Pain: No Palpitations: No Edema: None Muscle aches with walking: None Resp Respiratory: Negative for SOB with activity, SOB at rest, SOB orthopnea\SOB lying down, Cough or paroxysmal nocturnal dyspnea GI GI: Negative nausea, vomiting, heartburn or black,tarry stools : Negative for hematuria Musc Musc: Negative for muscle aches/ myalgia, muscle weakness, joint pain or balance problems Skin Skin: Negative non-healing lesions, rash or unusual bruising Neuro Neuro: Negative for dizziness, lightheadedness, near syncope, syncope, frequent falls, headache(s), weakness, blurry vision, double vision or lack of coordination Sincere Hematologic/Lymphatic: Negative for easy bleeding or easy bruising Endo Endo: Negative for fatigue, excessive sweating or increased thirst/drinking Psych Psych: Negative for anxiety or depression Allergy Allergy/Immunology: Negative for hives and Negative for rash Cardiology Exam Const Appearance: cooperative, healthy appearing, comfortable and no acute distress Nutritional Appearance: well nourished and overweight Orientation: alert, awake and oriented x3 Head Head: normal to inspection Ears: hearing grossly normal bilaterally Nose: external nose normal Face and Sinus: face symmetric Mouth: moist mucous membranes Eyes General: appearance normal, both eyes and all related structures Eyelids: eyelids normal EOM: EOM intact bilaterally Neck Neck: normal visual inspection and no JVD Carotids: normal carotid upstroke Chest Chest inspection: normal inspection of the chest, symmetric chest movement and normal respiratory effort; Negative cough Auscultation: Bilateral: Clear to Auscultation Cardio Rate: regular rate Rhythm: irregular rhythm Heart sounds: S1 normal and S2 normal; Negative rub, gallop or murmur GI GI: normal to inspection Neuro General: patient alert, patient awake, patient oriented x3 and CN's II-XI intact bilaterally Skin Skin: no rashes or lesions noted Extremities Pulses: Normal: Right Posterior Tibial Pulse, Left Posterior Tibial Pulse, Right Radial Pulse and Left Radial Pulse Lower Extremity Edema: None: Bilateral Psych Psychological: normal affect Supplemental Info Supplemental Information Echocardiogram from 06/10/2020: Interpretation Summary Normal LV systolic function The estimated ejection fraction is 60-65%. Trivial mitral valve insufficiency. There is moderate mitral annular calcification. Stress test from 04/06/2019: Conclusion: Normal pharmacologic myocardial perfusion stress test. Preserved ejection fraction. Carotid duplex ultrasound from 07/21/2021: Interpretation Summary Irregular calcific plaque at the proximal right internal carotid artery with less than 50% stenosis Less than 50% stenosis right external carotid artery Irregular calcific plaque in the proximal left internal carotid artery with less than 50% stenosis Less than 50% stenosis left external carotid artery Patent and antegrade vertebral arteries bilaterally No change from the previous examination of July 18, 2020 30-day event monitor from May 2021: Sinus rhythm with PVCs. 1 episode of atrial fibrillation, less than 1% total time. Maximal heart 133 bpm. Minimum heart rate 50 bpm. Average heart rate 68 bpm. No pauses greater than 3 seconds. 30-day event monitor from June 2020: Sinus rhythm with PVCs. Maximal heart 168 bpm. Minimum heart rate 48 bpm. Average heart rate 69 bpm. Assessment and Plan Assessment and Plan (1) Premature Ventricular Contractions Patient has a history of PVC's. His most recent Holter monitor from 11/23/2022 demonstrated a significant PVC burden of 55%. Would like to proceed with a cardiac catheterization to further assess this. Depending on results, further recommendations will be made. (2) Fatigue: Patient acknowledges fatigue. His most recent Holter monitor from 11/23/2022 demonstrated a significant PVC burden of 55%. Would like to proceed with a cardiac catheterization to further assess this. Depending on results, further recommendations will be made.
--- OUTSIDE RECORDS SUMMARY | 2022-12-14 09:02 | XMS RPT_ITS | CCD ---
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 06/04/21 0402 NA 134* 136 K 4.3 4.3 CL 103 104 CO2 27 25 BUN 20* 20* CREATININE 1.15 1.21 GLUCOSE 161* 173* Recent Labs 06/03/21351 AST 21 ALT 25 BILITOT 1.1 ALKPHOS 96 Lab Results Component Value Date TRIG 154 06/03/2021 HDL 32 06/03/2021 CHOL 148 06/03/2021 No results found for: PHART, PO2ART, [id number] Recent Labs 06/03/211953 INR 1.0 Recent Labs 06/03/21 1042 06/03/21195306/04/21 040 TROPONINI <0.012 <0.012 <0.012 No results for input(s): DDIMER in the last 72 hours. No components found for: HGBA1C No results found for: TSH Urine Culture: No results found for this or any previous visit. Objective: Vitals: BP 133/86 Pulse 73 Temp 98.2 F (36.8 C) (Temporal) Resp 18 Ht 5' 9 (1.753 m) Wt 195 lb (88.5 kg) SpO2 96% BMI 28.80 kg/m Pulse Ox: SpO2 Av.6 % Min: 95 % Max: 97 % Supplemental O2: General appearance: alert and cooperative with exam Lungs: clear to auscultation bilaterally Heart: regular rate and rhythm, S1, S2 normal, no murmur, click, rub or gallop Abdomen: soft, non-tender; bowel sounds normal; no masses, no organomegaly Extremities: extremities normal, atraumatic, no cyanosis or edema Neurologic: No obvious focal neurologic deficits. Assessment Principal Problem: TIA (transient ischemic attack) Active Problems: Cerebrovascular accident (CVA) due to embolism of left anterior cerebral artery (HCC) Resolved Problems: * No resolved hospital problems. * Diagnosis Date Arthritis Cancer (HCC) prostate Cerebral artery occlusion with cerebral infarction (HCC) Diabetes mellitus (HCC) Hyperlipidemia Hypertension Plan Transient R leg weakness / altered mental status - concerning for TIA - - CTA head and neck at [place] negative for acute process - await MRI - asa/statin - ? Need to add plavix - echo pending - neuro input appreciated Rash - ? Related to CT dye - will try benadryl Hx of remote CVA 1 year ago - sounds like it was occipital - still with some slight vision issues Hx of prostate CA s/p prostatectomy DM2 - monitor MBS HTN - controlled -am labs -increase activity Advance Directive: Full Code Discharge plannin-2 days Shady Flores MD, MD [facility] Hospitalist Nutrition rescreen completed. Chart reviewed. Patient to be monitored and followed by the diet insulator technician. Rapid Response Assessment Notification Method Sreedhar Patient Name: Farrukh Brookshire Room/Bed: 819/194828 Code Status: Full Code Allergies: Allergies Allergen Reactions Adhesive Tape Physical Exam Level of Consciousness: Alert & Oriented and with some apasia Pupils: Equal, Round and Reactive to Light Bilaterally Skin: Skin Assessment: Warm and Dry Cardio: Rhythm: Cardiac Rhythm: sinus with normal rate Peripheral Edema: None Pulmonary: Respiratory Assessment: clear to auscultation bilaterally- no wheezes, rales or rhonchi, normal air movement, no respiratory distress Abdomen: Assessment: Within Normal Limits Additional Assessment Findings (if applicable): Labs: Recent Labs 06/03/21 0352 WBC 8.9 HGB 14.9 HCT 44.0 PLT 170 Recent Labs 06/03/21 0352 NA 134* K 4.3 CL 103 CO2 27 BUN 20* CREATININE 1.15 GLUCOSE 161* Vitals: Vitals: 06/03/21 1125 06/03/21 1524 06/03/21 1652 06/03/21 1713 BP: (!) 142/74 (!) 143/78 (!) 158/82 133/87 Pulse: 77 70 68 71 Resp: 18 18 20 18 Temp: 98.3 F (36.8 C) 98.1 F (36.7 C) 96.9 F (36.1 C) 97.6 F (36.4 C) TempSrc: Temporal Temporal Temporal Temporal SpO2: 94% 96% 95% 95% Weight: Height: Current Vital Signs (if applicable): Provider Notified: Dr. Bella Neurology Interventions: Stroke team called pt with increasing NIH of 3 (1 for right arm drift, 1 for right leg drift, and 1 for aphasia) at the time of assessment.Pt vital signs WDL pt alert and sitting at the side of bed eating on arrival. Pt taken for CT/CTA but per neuro is not a candidate for TPA at this time since onset of original symptoms were yesterday at 1400. Pt will be transferred [facility] post CT per the request of Dr. Bella. Images from the original note were not included. Hospitalist Progress Note 06/03/2021 12:08 PM Subjective: Admit Date: 06/02/2021 PCP: No primary care provider on file. Interval History: No overnight issues. R leg back to full strength - has no complaints today ADULT DIET; Regular; Low Fat/Low Chol/High Fiber/MATHEUS Patient Vitals for the past 96 hrs (Last 3 readings): Weight 06/02/21 2133 195 lb (88.5 kg) Medications: sodium chloride 50 mL/hr at 06/03/21 0036 sodium chloride dextrose aspirin 162 mg Oral Daily atorvastatin 40 mg Oral Daily lisinopril 10 mg Oral Daily sodium chloride flush 5-40 mL IntraVENous 2 times per day enoxaparin 40 mg SubCUTAneous Daily insulin lispro 0-6 Units SubCUTAneous TID WC insulin lispro 0-3 Units SubCUTAneous Nightly Recent Labs 06/03/21 035 WBC 8.9 HGB 14.9 PLT 170 Recent Labs 06/03/21 035 NA 134* K 4.3 CL 103 CO2 27 BUN 20* CREATININE 1.15 GLUCOSE 161* Recent Labs 06/03/21351 AST 21 ALT 25 BILITOT 1.1 ALKPHOS 96 Lab Results Component Value Date TRIG 154 06/03/2021 HDL 32 06/03/2021 CHOL 148 06/03/2021 No results found for: PHART, PO2ART, [id number] No results for input(s): INR in the last 72 hours. Recent Labs 06/03/21 0352 06/03/21 1042 TROPONINI <0.012 <0.012 No results for input(s): DDIMER in the last 72 hours. No components found for: HGBA1C No results found for: TSH Urine Culture: No results found for this or any previous visit. Objective: Vitals: BP (!) 142/74 Pulse 77 Temp 98.3 F (36.8 C) (Temporal) Resp 18 Ht 5' 9 (1.753 m) Wt 195 lb (88.5 kg) SpO2 94% BMI 28.80 kg/m Pulse Ox: SpO2 Av.2 % Min: 93 % Max: 95 % Supplemental O2: General appearance: alert and cooperative with exam Lungs: clear to auscultation bilaterally Heart: regular rate and rhythm, S1, S2 normal, no murmur, click, rub or gallop Abdomen: soft, non-tender; bowel sounds normal; no masses, no organomegaly Extremities: extremities normal, atraumatic, no cyanosis or edema Neurologic: No obvious focal neurologic deficits. Assessment Principal Problem: TIA (transient ischemic attack) Resolved Problems: * No resolved hospital problems. * Diagnosis Date Arthritis Cancer (HCC) prostate Cerebral artery occlusion with cerebral infarction (HCC) Diabetes mellitus (HCC) Hyperlipidemia Hypertension Plan Transient R leg weakness / altered mental status - concerning for TIA - ? TGA as well - CTA head and neck at [place] negative for acute process - check MRI - asa/statin - ? Need to add plavix - echo pending - neuro input appreciated Rash - ? Related to CT dye yesterday - will try benadryl Hx of remote CVA 1 year ago - sounds like it was occipital - still with some slight vision issues Hx of prostate CA s/p prostatectomy DM2 - monitor MBS HTN - controlled -am labs -increase activity Advance Directive: Full Code Discharge plannin-2 days Shady Flores MD, MD [facility]ist Physical Therapy Facility/Department: [facility] Physical Therapy Evaluation and Treatment Order Received if Valerie <100 and below baseline. Prior to Admission Score is 95 and On Admission Score is 95. Pt does not met criteria for evaluation. Will Acknowledge Order. Godfrey Lew, PT Speech Language Pathology Patient passed the Nursing Swallowing Screening and is on a Regular diet, Cardiac: Low fat, Low cholesterol. High Fiber, MATHEUS with Thin liquids. Completed speech orders as per stroke protocol. Occupational Therapy Received orders for OT Eval and Treat per Valerie Index. Patient's initial and on admit numbers are the same, therefore patient is at baseline status. No skilled OT indicated. Discharge OT. -LEV Carvalho, OTR/L documented in this encounter [facility] Work Phone: Hospital Discharge instructions 06-03-2021 Instructions Note Date & Type Note Facility 06-03-2021 Hospital Discharg e instructions Vandana Alvarez RN - 06/03/2021 Refer to the Understanding Stroke Booklet given to you, written material provided to patient/family, addressing all signs & symptoms of a stroke, which are: sudden numbness or weakness of the face, arm or leg, especially on one side of the body sudden confusion sudden difficulty speaking or understanding sudden trouble seeing in one or both eyes sudden trouble walking,dizziness, loss of balance or coordination sudden severe headache with no known cause syncope or temporary loss of consciousness seizure Explained the need to call EMS ([phone]) immediately if signs & symptoms occur. Discussed medications that the patient is taking, will review medications again prior to discharge, risk factors, and the need for follow-up with a physician/FREIGHT SHIPPING AGENT/PA after discharge. Discussed the patient s personal risk factors for Stroke /TIA with patient/family, and ways to reduce the risk for a recurrent stroke. Patient's personal risk factors which were identified are: [x] High blood pressure [x] High cholesterol [] Atrial fibrillation [x] Diabetes [] Smoking [] Overweight [] Lack of Exercise [] Sleep apnea [] Prior heart disease or heart attack [] Excessive alcohol use [] Use of illicit drugs [x] Personal history of previous TIA or stroke [] Family history of stroke or heart disease [] Carotid stenosis [] Heart failure [] Patent Foramen Ovale [] Migraine [] Hormone replacement therapy [] Current (up to six weeks post ) [] Depression [] Sickle Cell [] Renal insufficiency - chronic [] None Refer to Understanding Stroke Booklet. Advised patient that risk for stroke/TIA can be reduced by modifying/controlling risk factors. Patient advised to take medications as prescribed, which will be detailed in the discharge instructions, and to not stop taking them without consulting a physician. In addition, pt. advised to maintain a healthy diet, exercise regularly and to not smoke. documented in this encounter [facility] Work Phone: Evaluation note Note Date & Type Note Facility documented in this encounter [facility] Work Phone: Summary Purpose Family History No Family History Records FoundNo Family History Records FoundNo Family History Records FoundNo Family History Records Found Advance Directives No Advanced Directives Records FoundLatest Code Status on File Code Status Date Activated Date Inactivated Comments Full Code 06/02/2021 11:26 PM Healthcare Agents on File Name Relationship Healthcare Agent Serena bernard Communication Kaia Valdez Spouse Primary Decision Maker Hospital Course Note HNO ID: [id number] Author: Zana feliciano ([facility]) Grater Service: Orthopaedic Surgery Author Type: Nurse Practitioner Type: Discharge Summary Filed: 04/11/2019 4:21 PM Note Text: Attestation signed by Donald Enriquez at 04/18/2019 11:22 AM Orthopaedic Staff Note Patient seen and examined, and I agree with the above note. Patient shows no signs or symptoms of a DVT or infection at this time. Donald Enriquez MD DISCHARGE SUMMARY PATIENT NAME: Farrukh Valdez ADMISSION DATE: 04/10/2019 DISCHARGE DATE: 04/11/2019 PATIENT DISCHARGE SUMMARY C O N F I D E N T I A L I N F O R M A T I O N The following is a brief overview of your hospitalization. Some of the information contained on this summary may be confidential. This information should be kept in your records and should be shared with your regular doctor. These instructions exp (more content not included)... Additional Source Comments (unrecognized sect ion and content) No Status Records FoundNo Status Records FoundNo Status Records FoundNo Status Records Found INFORMATION SOURCE (unrecogn ized section and content) DATE CREATED AUTHOR AUTHOR'S ALLEN HERNANDEZ 07/25/2020 [facility] DATE CREATED AUTHOR AUTHOR'S ORGANIZ ATION 06/08/2021 [facility] DATE CREATED AUTHOR AUTHOR'S ORGANIZ ATION 07/09/2021 [facility] Ordered Prescriptions (unrec ognized section and content) Scheduled Active and Recently Administ ered Medications (unrecognized section and content) Continuous Medication Order 06/03/2021 06/04/2021 06/05/2021 0.9 % sodium chloride infusion (CANCELED) IntraVENous, at 50 mL/hr, CONTINUOUS, Starting on Wed06/02/21 at 2345 0036 (New Bag - Provider: Vandana Alvarez, RN) 0.9 % sodium chloride infusion IntraVENous, at 75 mL/hr, CONTINUOUS, Starting on Wed06/03/21 at 1745 1951 (New Bag - Provider: Dirk Hendricks LPN) 2105 (Restarted - Provider: Mey Uriostegui, CLARK) 0633 (New Bag - Provider: Mey Uriostegui, CLARK) PRN Medication Order 06/03/2021 06/04/2021 06/05/2021 0.9 % sodium chloride infusion 25 mL, IntraVENous, at 100 mL/hr, PRN, If patient receiving piggyback infusions without ordered maintenance IV fluids or with frequent/long duration piggyback infusions, Starting on Wed06/02/21 at 2323, Administer at the same rate as the piggyback being infused. acetaminophen (TYLENOL) suppository 650 mg(Linked Group 1) 650 mg, Rectal, EVERY 4 HOURS PRN, Pain Mild (1-3), Fever, Fever >100.5 (38 C), Starting on Wed06/02/21 at 2323, Use suppository if NPO or failed swallow screen. acetaminophen (TYLENOL) tablet 650 mg(Linked Group 1) 650 mg, Oral, EVERY 4 HOURS PRN, Pain Mild (1-3), Fever, Fever >100.5 (38 C), Starting on Wed06/02/21 at 2323, Do not use if NPO or failed swallow screen. dextrose 5 % solution 100 mL/hr, IntraVENous, PRN, Low blood sugar, Starting on Wed06/02/21 at 2324, Start infusion following administration of dextrose 50% or glucagon. dextrose 50 % IV solution 12.5 g, IntraVENous, PRN, Low blood sugar, Blood glucose less than 70 mg/dL and patient NOT ALERT or NPO., Starting on Wed06/02/21 at 2324, If patient does not respond within 5 minutes, repeat dose x1. Start D5W at 100 mL/hour until ordering provider can be reached. Repeat blood glucose in 15 minutes. If blood glucose is less than 70 mg/dL, repeat treatment and recheck blood glucose in 15 minutes x2. If using Glucostabilizer, dose as instructed per system. diphenhydrAMINE (BENADRYL) tablet 25 mg 25 mg, Oral, EVERY 6 HOURS PRN, Itching, Starting on Wed06/03/21 at 1101 1219 (Given - Provider: Alia Zapata RN) glucagon (rDNA) injection 1 mg 1 mg, IntraMUSCular, PRN, Low blood sugar, Blood glucose less than 70 mg/dL and patient NOT ALERT or NPO and does not have IV access., Starting on Wed06/02/21 at 2324, After administration, attempt intravenous access and start D5W at 100 mL/hr. Repeat blood glucose in 15 minutes x2 and notify provider. Glucose (TRUEPLUS) oral gel 15 g 15 g, Oral, PRN, Low blood sugar, Starting on Wed06/02/21 at 2324, If blood glucose less than 50 mg/dL and patient ALERT and TOLERATING PO, give 2 tubes glucose gel. If blood glucose less than 70 mg/dL and patient ALERT and TOLERATING PO, give 1 tube glucose gel. Repeat blood glucose in 15 minutes. If blood glucose is less than 70 mg/dL, repeat treatment and recheck blood glucose in 15 minutes x2 and notify provider. labetalol (NORMODYNE;TRANDATE) injection 10 mg 10 mg, IntraVENous, EVERY 10 MIN PRN, High Blood Pressure, Starting on Wed06/03/21 at 1725, For 2 doses, Give over 1-2 minutes, if SBP greater than 200 mmHg or DBP greater than 110 mmHg immediately prior to planned administration of thrombolytic. May repeat x1 if SBP greater than 200 mmHg or DBP greater than 105 mmHg. Notify physician if SBP greater than 200 mmHg or DBP greater than 110 mmHg after second dose. Hold for HR less than 65 bpm and notify provider. ondansetron (ZOFRAN) injection 4 mg 4 mg, IntraVENous, EVERY 6 HOURS PRN, Nausea, Vomiting, Starting on Wed06/02/21 at 2323 perflutren lipid microspheres (DEFINITY) injection 1.65 mg 1.65 mg (1.5 mL), IntraVENous, IMG ONCE PRN, Other, Suboptimal Echo Image, Starting on Wed06/02/21 at 2324, For 72 hours, Administer up to 1.65 mg via slow IVP for suboptimal echocardiogram enhancement. May administer as concentrated dose or diluted in 8.5 mL of 0.9% sodium chloride for a total volume of 10 mL. May administer as divided doses to reach optimal image enhancement. polyethylene glycol (GLYCOLAX) packet 17 g 17 g, Oral, DAILY PRN, Constipation, Starting on Wed06/02/21 at 2325, First line therapy for constipation sodium chloride flush 0.9 % injection 5-40 mL 5-40 mL, IntraVENous, PRN, Line Care, After every IV line use, Starting on Wed06/02/21 at 2323, For Line Patency: Peripheral IV = 5 mL; Midline or Central Line = 10 mL/lumen. If following IV push medication, administer flush at same rate as the IV push. Flush volume is determined by type of infusion therapy being given. For non-viscous solutions use: Peripheral IV = 5 mL Midline or Central Line = 10 mL/lumen For viscous solutions (i.e. blood components, parenteral nutrition, contrast media, or after obtaining blood sample) use: Peripheral IV = 10 mL Midline or Central Line = 20 mL/lumen sodium chloride flush 0.9 % injection 5-40 mL 5-40 mL, IntraVENous, PRN, Line Care, Per Facility Maintenance Technician Request, Starting on Wed06/02/21 at 2324, For 72 hours, May use order for Line Care after every IV line use and Agitated Saline Bubble Study. Administration for Bubble Study per middle school resource teacher request for only. Remove 1 mL 0.9% sodium chloride from 10 mL syringe for creating agitated saline. If following IV push medication, administer flush at same rate as the IV push. Flush volume is determined by type of infusion therapy being given. , For non-viscous solutions use: Peripheral IV = 5 mL Midline or Central Line = 10 mL/lumen For viscous solutions (i.e. blood components, parenteral nutrition, contrast media, or after obtaining blood sample) use: Peripheral IV = 10 mL Midline or Central Line = 20 mL/lumen Linked Groups Order Group 1: acetaminophen (TYLENOL) tablet 650 mgJump to med 650 mg, Oral, EVERY 4 HOURS PRN, Pain Mild (1-3), Fever, Fever >100.5 (38 C), Starting on 06/02/21 at 2323
Do not use if NPO or failed swallow screen.
Or acetaminophen (TYLENOL) suppository 650 mgJump to med 650 mg, Rectal, EVERY 4 HOURS PRN, Pain Mild (1-3), Fever, Fever >100.5 (38 C), Starting on 06/02/21 at 2323
Use suppository if NPO or failed swallow screen.
Care Teams (unrecognized sec tion and content) FOR RECORDS PERTAINING TO PATIENTS WHO ARE OR HAVE BEEN ENROLLED IN A CHEMICAL DEPENDENCY/SUBSTANCEABUSE PROGRAM, SOME INFORMATION MAY BE OMITTED. This clinical summary was aggregated from multiple sources. Caution should be exercised in using it in the provision of clinical care. This summary normalizes information from multiple sources, and as a consequence, information in this document may materially change the coding, format and clinical context of patient data. In addition, data may be omitted in some cases. CLINICAL DECISIONS SHOULD BE BASED ON THE PRIMARY CLINICAL RECORDS. [employer] provides no warranty or guarantee of the accuracy or completeness of information in this document.
--- NOTE | 2022-12-14 10:52 | CL.D_ITS ---
Patient Name: FARRUKH GORDON Study Date: 12/14/2022 Performing: Alexis Graves MD Ht: 69 inches 175.26 cm : 1950 Wt: lbs kg Age: 72 Gender: male BSA: PROCEDURE(S) PERFORMED [id number]-([id number])LHC/COR/LV CLINICAL PROFILE AND INDICATIONS Indications: Cardiac Arrythmia Heart Failure: None Stress/Imaging Stress/Image Study Performed: No CAD Presentations: Other: fatigue CONCLUSIONS Non obstructive coronary arteries Normal LV size, wall motion,and systolic function Cardiac dysrhythmias noted with ventricular bigeminy RECOMMENDATIONS We will recommend PVC ablation. DESCRIPTION OF PROCEDURE The patient arrived to the procedure lab. The risks and benefits of the procedure as well as a full description of our services here and current unavailability of surgical backup were fully explained to the patient and/or their significant other prior to the catheterization. The Timeout was completed, verifying the correct patient and procedure. The patient's procedural site was prepped and draped in the usual fashion. Local anesthetic was given subcutaneously to right radial region with Lidocaine 2%. Using a modified Seldinger technique, arterial access was obtained via the right radial artery, a 6Fr sheath was inserted. Left Coronary Artery selective angiography was performed in multiple views using a 5 Fr. 4.0 Vansant catheter. Right Coronary Artery selective angiography was then performed in multiple views using a 5 Fr. 4.0 Vansant catheter. Left Ventriculography was performed in HUFF projection using a 5 Fr. Pigtail catheter. LV to AO pullback pressures were then recorded.The arterial sheath was pulled and a TR Band was applied for hemostasis CORONARY ANGIOGRAPHY DOMINANCE: Right Dominant LEFT HEART ASSESSMENT Left Ventricular Ejection Fraction: by LV Gram 55 % Normal LV wall motion Normal Left Ventricular systolic function LEFT MAIN: Angiographically normal LEFT ANTERIOR DESCENDING ARTERY: Mild luminal irregularities less than 30% CIRCUMFLEX ARTERY: Mild luminal irregularities less than 30% RIGHT CORONARY ARTERY: Mild luminal irregularities less than 30% COMPLICATIONS No Complications PROCEDURE MEDICATIONS Versed 1 mg IV Fentanyl 50 mcg IV Versed 1 mg IV Oxygen: 2 L/min via nasal cannula Baby Aspirin (81mg) 1 Tabs PO @ 12/14/2022 09:00:43 Heparin given IA 12/14/2022 10:14:29 SUMMARY OF HEMODYNAMIC DATA Time AIR REST AO 219/49 (75) SA 10:27:22 LV 114/9, 0 10:31:27 LV 177/7, 18 10:31:35 LV 165/8, 29 10:33:50 LV 155/9, 53 10:34:38 LVp 165/43, 0 10:34:44 AOp 0/75 (108) 10:34:49 AIR REST 10:48:49 Signed By Alexis Graves MD On 12/14/2022 10:51:29 Alexis Graves MD
== END | disposition home or self-care (01) ==
LOC: CLSP 08:38
PROVIDERS: PCP Family Medicine; Referring Provider Internal Medicine Cardiovascular Disease; Visit Provider Internal Medicine Cardiovascular Disease
DX: R53.83 Other fatigue (principal); E11.9 Type 2 diabetes mellitus without complications; R94.39 Abnormal result of other cardiovascular function study; I49.3 Ventricular premature depolarization; Z82.49 Family history of ischemic heart disease and other diseases of the circulatory system; I10 Essential (primary) hypertension; E78.5 Hyperlipidemia, unspecified; Z86.73 Personal history of transient ischemic attack (TIA), and cerebral infarction without residual deficits; Z85.46 Personal history of malignant neoplasm of prostate
CPT/HCPCS: 93458; 99152; 99153; J7040; Q9967; C1769; C1894

== ENCOUNTER → 2023-02-05 | Outpatient (CLI) | payer MEDICARE, OTHER, SELFPAY ==
[2023-02-05 09:39] LABS: ALB/GLOB Ratio 1.1 RATIO (0.9-2.4); AST(SGOT) 11 U/L (15-37); Alanine Aminotransfer ALT/SGPT 19 U/L (16-61); Albumin, Serum 3.5 g/dL (3.2-5.0); Alkaline Phosphatase 101 U/L (45-117); Anion Gap 2 (5-15); BUN 20 mg/dL (7-18); BUN/Creat Ratio 16.8 RATIO (10-20); Calcium,Total 8.8 mg/dL (8.5-10.1); Chloride 109 mmol/L (98-107); Cholesterol 102 mg/dL (200); Creatinine, Serum 1.19 mg/dL (0.70-1.30); EST Glomerular Filtration Rate 64 mL/min (>60); Est Glom Filt Rate - Afr Amer 77 mL/min (>60); Globulin 3.3 g/dL (2.2-4.2); Glucose 109 mg/dL (74-106); High Density Lipoprotein 40 mg/dL; PSA,Total - Annual Screen < 0.01 ng/mL (0.00-4.00); Potassium 3.9 mmol/L (3.5-5.1); Protein, Total 6.8 g/dL (6.4-8.2); Sodium Level 141 mmol/L (136-145); Triglycerides 94 mg/dL; Very Low Density Lipoprotein 19 mg/dL (5-40)
[2023-02-05 10:05] LABS: Microalbumin:Creatinine Ratio 470.1 mg/g CRE (<30 mg/g CRE)
== END | disposition home or self-care (01) ==
LOC: LAB 07:49
PROVIDERS: PCP Family Medicine; Referring Provider Family Medicine; Visit Provider Family Medicine
DX: E11.9 Type 2 diabetes mellitus without complications (principal); Z85.46 Personal history of malignant neoplasm of prostate; Z12.5 Encounter for screening for malignant neoplasm of prostate
CPT/HCPCS: 36415; 80053; 80061; 82043; 82570; 84153; G0103

== ENCOUNTER → 2024-01-17 | Outpatient (CLI) | payer MEDICARE, OTHER, SELFPAY ==
--- NOTE | 2024-01-17 09:41 | CDU_ITS ---
Reason For Study: HX CVA Rt. Velocities/BP Lt. Velocities/BP Prox CCA 94.2/12.1 cm/sec. Prox CCA 90.6/10.2 cm/sec. Mid CCA 128.9/21.2 cm/sec. Mid CCA 110.7/15.7 cm/sec. Dist CCA 79.8/7.7 cm/sec. Dist CCA 85.3/16.0 cm/sec. Prox ICA 79.8/12.7 cm/sec. Prox ICA 78.7/9.5 cm/sec. Mid ICA 83.0/20.4 cm/sec. Mid ICA 55.4/13.4 cm/sec. Dist ICA 80.0/23.2 cm/sec. Dist ICA 78.5/19.6 cm/sec. Rt. ICA/CCA = 0.6. Lt. ICA/CCA = 0.7. Prox ECA 80.9/5.1 cm/sec. Prox ECA 62.5/4.9 cm/sec. Rt. Vert. 38.9/8.4 cm/sec. Lt. Vert. 91.9/12.7 cm/sec. Right Extracranial There is intimal thickening but no significant atherosclerotic plaque noted in the right common carotid artery. There is heterogeneous, irregular atherosclerotic plaque noted in the right internal carotid artery. The right internal carotid artery is very tortuous. There is intimal thickening but no significant atherosclerotic plaque noted in the right external carotid artery. Antegrade flow is noted in the right vertebral artery. Left Extracranial There is intimal thickening but no significant atherosclerotic plaque noted in the left common carotid artery. There is heterogeneous, irregular atherosclerotic plaque noted in the left internal carotid artery. The distal left internal carotid artery is not well visualized. The left external carotid artery is not well visualized. Antegrade flow is noted in the left vertebral artery. Procedure Carotid Duplex [id number]. This is a Carotid Duplex examination using B-mode, color flow and specral Doppler. The exam was diagnostic. Exam performed in department. VL/Carotid Duplex Ultrasound Interpretation Summary Mild (<50%) stenosis right extracranial internal carotid. Mild (<50%) stenosis left extracranial internal carotid. Patent and antegrade vertebrals bilaterally. Ordering Physician: Oliver Desai Referring Physician: Julia Torres Performed By: Puneet Jean RVT
== END | disposition home or self-care (01) ==
LOC: CVS 09:39
PROVIDERS: PCP Family Medicine; Referring Provider Psychiatry & Neurology Neurology; Visit Provider Psychiatry & Neurology Neurology
DX: I65.23 Occlusion and stenosis of bilateral carotid arteries (principal)
CPT/HCPCS: 93880

== ENCOUNTER → 2024-02-11 | Outpatient (CLI) | payer MEDICARE, OTHER, SELFPAY ==
[2024-02-11 11:12] LABS: ALB/GLOB Ratio 0.9 RATIO (0.9-2.4); AST(SGOT) 17 U/L (15-37); Alanine Aminotransfer ALT/SGPT 26 U/L (16-61); Albumin, Serum 3.4 g/dL (3.2-5.0); Alkaline Phosphatase 126 U/L (45-117); Anion Gap 3 (5-15); BUN 21 mg/dL (7-18); BUN/Creat Ratio 16.9 RATIO (10-20); Calcium,Total 8.8 mg/dL (8.5-10.1); Chloride 107 mmol/L (98-107); Cholesterol 123 mg/dL (200); Creatinine, Serum 1.24 mg/dL (0.70-1.30); EST Glomerular Filtration Rate 60 mL/min (>60); Est Glom Filt Rate - Afr Amer 73 mL/min (>60); Globulin 3.8 g/dL (2.2-4.2); Glucose 105 mg/dL (74-106); High Density Lipoprotein 42 mg/dL; PSA,Total- Diagnostic < 0.01 ng/mL (0.0-4.0); Potassium 4.2 mmol/L (3.5-5.1); Protein, Total 7.2 g/dL (6.4-8.2); Sodium Level 139 mmol/L (136-145); Triglycerides 107 mg/dL; Very Low Density Lipoprotein 21 mg/dL (5-40)
[2024-02-11 11:13] LABS: Vitamin B12 796 pg/mL (211-911)
[2024-02-11 11:15] LABS: Microalbumin,Random Urine 41.3 mg/L (NO RANGE EST.); Microalbumin:Creatinine Ratio 35.9 mg/g CRE (<30 mg/g CRE)
== END | disposition home or self-care (01) ==
LOC: LAB 10:08
PROVIDERS: PCP Family Medicine; Referring Provider Family Medicine; Visit Provider Family Medicine
DX: E11.9 Type 2 diabetes mellitus without complications (principal); I63.9 Cerebral infarction, unspecified; Z85.46 Personal history of malignant neoplasm of prostate
CPT/HCPCS: 36415; 80053; 80061; 82043; 82570; 82607; 84153

== ENCOUNTER → 2025-02-13 | Outpatient (CLI) | payer MEDICARE, OTHER, SELFPAY ==
[2025-02-13 15:37] LABS: Creatinine, Urine (random) 130.00 mg/dL (39.00-259.00); Microalbumin,Random Urine 40.7 mg/L (<20 mg/L)
[2025-02-13 15:55] LABS: AST(SGOT) 19 U/L (<=37); Alanine Aminotransfer ALT/SGPT 20 U/L (<=46); Albumin, Serum 4.0 g/dL (3.4-4.8); Alkaline Phosphatase 103 U/L (40-129); Anion Gap 11 (5-15); BUN 23 mg/dL (4-19); BUN/Creat Ratio 17.0 RATIO (10-20); Calcium,Total 9.1 mg/dL (7.6-11.0); Carbon Dioxide 22.9 mmol/L (21.0-32.0); Chloride 107 mmol/L (98-108); Cholesterol 120 mg/dL (<=200); Globulin 2.9 g/dL (2.2-4.2); Glucose 133 mg/dL (70-99); Low Density Lipoprotein Calc. 58 mg/dL; Potassium 4.5 mmol/L (3.3-5.1); Triglycerides 120 mg/dL; Very Low Density Lipoprotein 24 mg/dL (5-40); cholesterol:hdl ratio screen 3.00
[2025-02-13 15:56] LABS: PSA,Total- Diagnostic < 0.02 ng/mL (0.00-4.00); Vitamin B12 660 pg/mL (180-914)
== END | disposition home or self-care (01) ==
LOC: BFHLAB 11:15
PROVIDERS: PCP Family Medicine; Visit Provider Family Medicine
DX: E11.9 Type 2 diabetes mellitus without complications (principal); I63.9 Cerebral infarction, unspecified; Z85.46 Personal history of malignant neoplasm of prostate
CPT/HCPCS: 36415; 80053; 80061; 82043; 82570; 82607; 84153